=== PATIENT | male | born 1960 | race Caucasian/White ===

== ENCOUNTER 2017-07-21 11:40 | Observation (INO) | payer OTHER ==
[~2017-07-21] VITALS: Ht 177.8 cm; Wt 65.8 kg
[~2017-07-21 11:40] MED LIST: ASPI81CH PO; BP MEDICATION; CYCL10 PO; GABA100 PO; GABA300 PO; GEMF600 PO; HYDCHL12.5 PO; HYDCHL25 PO; LISHYD1012 PO; LISHYD2025 PO; LISI20 PO; Lisinopril2.5 MG; METO25ER PO; MIRT30 PO; NORT10 PO; NORT25 PO; Norco 5-325 Ta1 EACH PO; OMEP10ER; OMEP20ER PO; OMEPRAZOLE MAGN20 MG PO; PRED10 PO; PROM25 PO; Prednisone10 MG PO; SIMV10 PO; SIMV40 PO; TOPI25 PO; TOPI50 PO; TRAZ100 PO
[2017-07-21 13:19] LABS: BASOPHILS ABSOLUTE AUTO 0.05 K/mm3 (0.00-0.23); BASOPHILS PERCENT AUTO 1 % (0-2); EOSINOPHILS ABSOLUTE AUTO 0.11 K/mm3 (0.00-0.68); EOSINOPHILS PERCENT AUTO 2 % (0-6); Hematocrit 45.2 % (37.0-53.0); Hemoglobin 15.5 g/dL (13.5-17.5); IMMATURE GRAN ABSOLUTE AUTO 0.02 K/mm3 (0.00-0.10); IMMATURE GRAN PERCENT AUTO 0 % (0-1); LYMPHOCYTES ABSOLUTE AUTO 1.82 K/mm3 (0.84-5.20); LYMPHOCYTES PERCENT AUTO 25 % (21-46); MONOCYTES ABSOLUTE AUTO 0.55 K/mm3 (0.16-1.47); MONOCYTES PERCENT AUTO 8 % (4-13); Mean Corpuscular HGB 31.2 pg (26.0-34.0); Mean Corpuscular HGB Conc 34.3 g/dL (31.5-36.5); Mean Corpuscular Volume 91 fL (80-100); Mean Platelet Volume 9.5 fL (9.1-12.4); NEUTROPHILS ABSOLUTE AUTO 4.62 K/mm3 (1.96-9.15); NEUTROPHILS PERCENT AUTO 64 % (41-73); Platelet Count 225 K/mm3 (150-400); RDW Coefficient Variation 13.3 % (11.7-14.2); RDW Standard Deviation 44.7 fL (35.1-46.3); Red Blood Cell Count 4.97 M/mm3 (4.30-5.90); White Blood Cell Count 7.17 K/mm3 (4.00-11.30)
[2017-07-21] MEDS ORDERED: CLON.5 PO (13:27)
[2017-07-21] MEDS ORDERED: IBUP800 PO (13:27)
[2017-07-21] MEDS ORDERED: DOXA1 PO (13:28)
[2017-07-21] MEDS ORDERED: ESCI10 PO (13:28)
[2017-07-21 13:47] LABS: Alanine Aminotransfer (ALT/SGP 17 U/L (12-78); Albumin/Globulin Ratio 1.2 (0.8-1.8); Alk Phos 80 U/L (50-136); Anion Gap 8 mmol/L (6-16); Aspartate Aminotrans (AST/SGOT 8 U/L (12-37); Bilirubin, Total 0.5 mg/dL (0.1-1.0); Blood Urea Nitrogen 12 mg/dL (8-24); Bun/Creatinine Ratio 15.1 (12.0-20.0); CO2, Blood 24 mmol/L (21-32); Calcium, Blood 8.8 mg/dL (8.5-10.1); Chloride, Blood 109 mmol/L (98-108); Creatinine, Blood 0.79 mg/dL (0.60-1.20); Ethanol (Alcohol), Blood, Med <3 mg/dL; Globulin, Blood 3.4 g/dL (2.2-4.0); Glomerular Filtration Rate >60 (60-); Glucose, Blood 88 mg/dL (70-99); Salicylate 9.9 mg/dL (2.8-20.0); Sodium, Blood 141 mmol/L (136-145); Total Protein, Blood 7.4 g/dL (6.4-8.2)
[2017-07-21 13:51] LABS: Thyroid Stimulating Hormone 0.601 uIU/mL (0.360-4.800)
[2017-07-21 13:52] LABS: Acetaminophen, Random < 2.0 ug/mL (10.0-30.0)
[2017-07-21 14:31] LABS: Bilirubin, Urine Neg (Neg); Blood, Urine 1+ (Neg); Glucose Qualitative, Urine Neg (Neg); Ketones, Urine Neg (Neg); Leukocyte Esterase, Urine 1+ (Neg); Nitrite, Urine Neg (Neg); Protein, Urine Neg (Neg); Specific Gravity, Urine 1.015 (1.003-1.022); Urobilinogen, Urine NORM (Normal)
[2017-07-21 14:38] LABS: Appearance, Urine Clear (Clear); Color, Urine Yellow (P-Yellow)
[2017-07-21 14:39] LABS: Amorphous Light (0-Heavy); Bacteria Mod /hpf; Red Blood Cells, Urine 0-2 /hpf (0-2); Squamous Epithelial Cells Rare /hpf (Few); White Blood Cells, Urine 0-2 /hpf (0-5)
[2017-07-21 14:41] LABS: U Amphetamine Screen Not Detected; U Barbituate Screen DETECTED; U Benzodiazapine Screen Not Detected; U Buprenorphine Screen Not Detected; U Cannabinoids Screen DETECTED; U Cocaine Screen Not Detected; U Methadone Screen Not Detected; U Methamphetamine Screen Not Detected; U Opiates Screen Not Detected; U Oxycodone Screen Not Detected; U Phencyclidine Screen Not Detected; U Propoxyphene Screen Not Detected
== END 2017-07-21 15:47 | disposition home or self-care (01) ==
LOC: ER 11:40 → EOR 11:41
PROVIDERS: Emergency Medicine
DX: R45.851 Suicidal ideations (principal); F32.9 Major depressive disorder, single episode, unspecified; F29 Unspecified psychosis not due to a substance or known physiological condition; R63.4 Abnormal weight loss; I10 Essential (primary) hypertension; E78.00 Pure hypercholesterolemia, unspecified; Z88.5 Allergy status to narcotic agent; Z79.82 Long term (current) use of aspirin; Z79.899 Other long term (current) drug therapy; Z98.890 Other specified postprocedural states; Z87.891 Personal history of nicotine dependence
CPT/HCPCS: 36415; 80053; 81001; 84443; 85025; 86592; 87086; 87389; 99285; G0378; G0480; Q3014

== ENCOUNTER 2017-08-31 10:24 | Inpatient (IN) | payer OTHER, SELFPAY ==
[~2017-08-31] VITALS: Ht 182.9 cm; Wt 65.1 kg
[~2017-08-31 10:24] MED LIST changes: +CLON.5 PO; +DOXA1 PO; +ESCI10 PO; +IBUP800 PO
[2017-08-31] MEDS ORDERED: TIZANIDINE HCL2 MG PO (10:45)
[2017-08-31] MEDS ORDERED: Prozac20 MG PO (10:45)
[2017-08-31] MEDS ORDERED: SIMV40 PO (10:46)
[2017-08-31] MEDS ORDERED: LISI20 PO (10:46)
[2017-08-31] MEDS ORDERED: TOPI50 PO (10:46)
[2017-08-31 11:00] LABS: PCO2 Arterial 24.8 mmHg (35-45); PO2 Arterial 90.8 mmHg (80-100); pH Blood Arterial 7.23 (7.35-7.45)
[2017-08-31 11:02] LABS: BASOPHILS ABSOLUTE AUTO 0.07 K/mm3 (0.00-0.23); BASOPHILS PERCENT AUTO 1 % (0-2); EOSINOPHILS ABSOLUTE AUTO 0.17 K/mm3 (0.00-0.68); EOSINOPHILS PERCENT AUTO 2 % (0-6); Hematocrit 48.9 % (37.0-53.0); IMMATURE GRAN ABSOLUTE AUTO 0.03 K/mm3 (0.00-0.10); IMMATURE GRAN PERCENT AUTO 0 % (0-1); LYMPHOCYTES PERCENT AUTO 28 % (21-46); MONOCYTES ABSOLUTE AUTO 0.68 K/mm3 (0.16-1.47); MONOCYTES PERCENT AUTO 8 % (4-13); Mean Corpuscular HGB 31.5 pg (26.0-34.0); Mean Corpuscular HGB Conc 32.7 g/dL (31.5-36.5); Mean Corpuscular Volume 96 fL (80-100); Mean Platelet Volume 9.7 fL (9.1-12.4); NEUTROPHILS ABSOLUTE AUTO 5.35 K/mm3 (1.96-9.15); NEUTROPHILS PERCENT AUTO 61 % (41-73); Platelet Count 226 K/mm3 (150-400); RDW Coefficient Variation 13.2 % (11.7-14.2); RDW Standard Deviation 47.6 fL (35.1-46.3); Red Blood Cell Count 5.08 M/mm3 (4.30-5.90)
[2017-08-31 11:10] LABS: Calcium, Ionized (POC) 1.14 mmol/L (1.10-1.46); Chloride (POC) 110 mmol/L (98-108); Creatinine (POC) 0.9 mg/dL (0.8-1.3); Glucose (ISTAT POC) 78 mg/dL (70-99); Hemoglobin (POC) 15.6 g/dL (13.5-17.5); Potassium (POC) 3.7 mmol/L (3.5-5.5); Sodium (POC) 145 mmol/L (135-148); Total CO2 (POC) 14 mmol/L (21-32)
[2017-08-31 11:23] LABS: Acetaminophen, Random <2.0 ug/mL (10.0-30.0); Alanine Aminotransfer (ALT/SGP 16 U/L (12-78); Albumin, Blood 3.9 g/dL (3.4-5.0); Albumin/Globulin Ratio 1.1 (0.8-1.8); Alk Phos 83 U/L (50-136); Anion Gap 15 mmol/L (6-16); Aspartate Aminotrans (AST/SGOT 10 U/L (12-37); Beta-hydroxybutyrate 1.1 mg/dL (0.2-2.8); Bilirubin, Total 0.2 mg/dL (0.1-1.0); Blood Urea Nitrogen 11 mg/dL (8-24); Bun/Creatinine Ratio 10.3 (12.0-20.0); CO2, Blood 17 mmol/L (21-32); Calcium, Blood 9.2 mg/dL (8.5-10.1); Chloride, Blood 113 mmol/L (98-108); Creatinine, Blood 1.07 mg/dL (0.60-1.20); Ethanol (Alcohol), Blood, Med <3 mg/dL; Globulin, Blood 3.6 g/dL (2.2-4.0); Glomerular Filtration Rate >60 (60-); Glucose, Blood 94 mg/dL (70-99); Potassium, Blood 4.7 mmol/L (3.5-5.5); Salicylate 8.9 mg/dL (2.8-20.0); Sodium, Blood 145 mmol/L (136-145); Total Protein, Blood 7.5 g/dL (6.4-8.2)
[2017-08-31 11:27] LABS: Thyroid Stimulating Hormone 0.748 uIU/mL (0.360-4.800)
[2017-08-31 11:48] LABS: Source, Urine Catheter
[2017-08-31 11:52] LABS: Bilirubin, Urine Neg (Neg); Blood, Urine 1+ (Neg); Glucose Qualitative, Urine Neg (Neg); Ketones, Urine Neg (Neg); Leukocyte Esterase, Urine Neg (Neg); Nitrite, Urine Neg (Neg); Protein, Urine Neg (Neg); Urobilinogen, Urine NORM (Normal)
[2017-08-31 12:06] LABS: Appearance, Urine Clear (Clear); Color, Urine Pale Yellow (P-Yellow)
[2017-08-31 12:08] LABS: Bacteria Not Seen /hpf; Red Blood Cells, Urine 0-2 /hpf (0-2); Squamous Epithelial Cells Rare /hpf (Few); White Blood Cells, Urine Not Seen /hpf (0-5)
[2017-08-31 12:11] LABS: U Amphetamine Screen Not Detected; U Barbituate Screen DETECTED; U Benzodiazapine Screen Not Detected; U Buprenorphine Screen Not Detected; U Cannabinoids Screen DETECTED; U Cocaine Screen Not Detected; U Methadone Screen Not Detected; U Methamphetamine Screen Not Detected; U Opiates Screen Not Detected; U Oxycodone Screen Not Detected; U Phencyclidine Screen Not Detected; U Propoxyphene Screen Not Detected
[2017-08-31 14:35] LABS: PCO2 Arterial 27.5 mmHg (35-45); PO2 Arterial 115 mmHg (80-100); pH Blood Arterial 7.26 (7.35-7.45)
[2017-08-31 16:32] LABS: Albumin, Blood 3.3 g/dL (3.4-5.0); Anion Gap 11 mmol/L (6-16); Blood Urea Nitrogen 9 mg/dL (8-24); Bun/Creatinine Ratio 8.7 (12.0-20.0); CO2, Blood 18 mmol/L (21-32); Calcium, Blood 8.3 mg/dL (8.5-10.1); Chloride, Blood 119 mmol/L (98-108); Creatinine, Blood 1.04 mg/dL (0.60-1.20); Glomerular Filtration Rate >60 (60-); Glucose, Blood 105 mg/dL (70-99); Phosphorus, Blood 3.5 mg/dL (2.5-4.9); Potassium, Blood 4.4 mmol/L (3.5-5.5); Salicylate 7.2 mg/dL (2.8-20.0); Sodium, Blood 148 mmol/L (136-145)
[2017-08-31 17:02] LABS: Test Name ETHYL GLYC
[2017-08-31 17:36] LABS: PCO2 Arterial 29.3 mmHg (35-45); PO2 Arterial 94.3 mmHg (80-100); pH Blood Arterial 7.34 (7.35-7.45)
[2017-08-31 21:14] LABS: Anion Gap 8 mmol/L (6-16); Blood Urea Nitrogen 7 mg/dL (8-24); Bun/Creatinine Ratio 8.3 (12.0-20.0); CO2, Blood 21 mmol/L (21-32); Calcium, Blood 7.9 mg/dL (8.5-10.1); Chloride, Blood 119 mmol/L (98-108); Creatinine, Blood 0.84 mg/dL (0.60-1.20); Glomerular Filtration Rate >60 (60-); Glucose, Blood 135 mg/dL (70-99); Potassium, Blood 3.3 mmol/L (3.5-5.5); Sodium, Blood 148 mmol/L (136-145)
[2017-08-31 22:28] LABS: Salicylate 6.5 mg/dL (2.8-20.0)
[2017-08-31 22:42] LABS: PCO2 Arterial 36.6 mmHg (35-45); pH Blood Arterial 7.37 (7.35-7.45)
[2017-09-01 04:34] LABS: BASOPHILS ABSOLUTE AUTO 0.04 K/mm3 (0.00-0.23); BASOPHILS PERCENT AUTO 0 % (0-2); EOSINOPHILS ABSOLUTE AUTO 0.07 K/mm3 (0.00-0.68); EOSINOPHILS PERCENT AUTO 1 % (0-6); Hematocrit 42.8 % (37.0-53.0); Hemoglobin 14.5 g/dL (13.5-17.5); IMMATURE GRAN ABSOLUTE AUTO 0.02 K/mm3 (0.00-0.10); IMMATURE GRAN PERCENT AUTO 0 % (0-1); LYMPHOCYTES PERCENT AUTO 14 % (21-46); MONOCYTES ABSOLUTE AUTO 0.93 K/mm3 (0.16-1.47); MONOCYTES PERCENT AUTO 9 % (4-13); Mean Corpuscular HGB 31.2 pg (26.0-34.0); Mean Corpuscular HGB Conc 33.9 g/dL (31.5-36.5); Mean Platelet Volume 9.6 fL (9.1-12.4); NEUTROPHILS ABSOLUTE AUTO 7.89 K/mm3 (1.96-9.15); NEUTROPHILS PERCENT AUTO 75 % (41-73); Platelet Count 205 K/mm3 (150-400); RDW Coefficient Variation 13.5 % (11.7-14.2); RDW Standard Deviation 45.8 fL (35.1-46.3); Red Blood Cell Count 4.65 M/mm3 (4.30-5.90); White Blood Cell Count 10.45 K/mm3 (4.00-11.30)
[2017-09-01 04:45] LABS: Mean Corpuscular Volume 92 fL (80-100)
[2017-09-01 04:55] LABS: Albumin, Blood 3.2 g/dL (3.4-5.0); Anion Gap 10 mmol/L (6-16); Blood Urea Nitrogen 7 mg/dL (8-24); Bun/Creatinine Ratio 8.6 (12.0-20.0); CO2, Blood 22 mmol/L (21-32); Chloride, Blood 119 mmol/L (98-108); Creatinine, Blood 0.81 mg/dL (0.60-1.20); Glomerular Filtration Rate >60 (60-); Glucose, Blood 95 mg/dL (70-99); Magnesium, Blood 2.2 mg/dL (1.6-2.4); Phosphorus, Blood 2.6 mg/dL (2.5-4.9); Potassium, Blood 3.2 mmol/L (3.5-5.5); Sodium, Blood 151 mmol/L (136-145)
[2017-09-01 05:10] LABS: PCO2 Arterial 33.1 mmHg (35-45); pH Blood Arterial 7.42 (7.35-7.45)
[2017-09-01 11:50] LABS: Anion Gap 9 mmol/L (6-16); Blood Urea Nitrogen 6 mg/dL (8-24); CO2, Blood 21 mmol/L (21-32); Calcium, Blood 8.1 mg/dL (8.5-10.1); Chloride, Blood 119 mmol/L (98-108); Creatinine, Blood 0.75 mg/dL (0.60-1.20); Glomerular Filtration Rate >60 (60-); Glucose, Blood 81 mg/dL (70-99); Potassium, Blood 3.3 mmol/L (3.5-5.5); Sodium, Blood 149 mmol/L (136-145)
[2017-09-01 13:30] LABS: Test Name ETHYL GLYC
[2017-09-01 14:43] LABS: Anion Gap 8 mmol/L (6-16); Blood Urea Nitrogen 7 mg/dL (8-24); Bun/Creatinine Ratio 9.9 (12.0-20.0); CO2, Blood 24 mmol/L (21-32); Calcium, Blood 8.1 mg/dL (8.5-10.1); Chloride, Blood 116 mmol/L (98-108); Glomerular Filtration Rate >60 (60-); Glucose, Blood 84 mg/dL (70-99); Potassium, Blood 3.1 mmol/L (3.5-5.5); Sodium, Blood 148 mmol/L (136-145)
[2017-09-02 00:18] LABS: Test Name ETHYL GLYC
[2017-09-02 03:56] LABS: BASOPHILS ABSOLUTE AUTO 0.04 K/mm3 (0.00-0.23); BASOPHILS PERCENT AUTO 0 % (0-2); EOSINOPHILS ABSOLUTE AUTO 0.11 K/mm3 (0.00-0.68); EOSINOPHILS PERCENT AUTO 1 % (0-6); Hematocrit 36.9 % (37.0-53.0); Hemoglobin 13.1 g/dL (13.5-17.5); IMMATURE GRAN ABSOLUTE AUTO 0.03 K/mm3 (0.00-0.10); IMMATURE GRAN PERCENT AUTO 0 % (0-1); LYMPHOCYTES ABSOLUTE AUTO 1.72 K/mm3 (0.84-5.20); LYMPHOCYTES PERCENT AUTO 18 % (21-46); MONOCYTES ABSOLUTE AUTO 0.97 K/mm3 (0.16-1.47); MONOCYTES PERCENT AUTO 10 % (4-13); Mean Corpuscular HGB 31.6 pg (26.0-34.0); Mean Corpuscular HGB Conc 35.5 g/dL (31.5-36.5); Mean Platelet Volume 9.9 fL (9.1-12.4); NEUTROPHILS ABSOLUTE AUTO 6.77 K/mm3 (1.96-9.15); NEUTROPHILS PERCENT AUTO 70 % (41-73); Platelet Count 180 K/mm3 (150-400); RDW Coefficient Variation 12.8 % (11.7-14.2); Red Blood Cell Count 4.14 M/mm3 (4.30-5.90); White Blood Cell Count 9.64 K/mm3 (4.00-11.30)
[2017-09-02 03:57] LABS: Mean Corpuscular Volume 89 fL (80-100)
[2017-09-02 04:15] LABS: Anion Gap 6 mmol/L (6-16); Blood Urea Nitrogen 5 mg/dL (8-24); Bun/Creatinine Ratio 7.9 (12.0-20.0); CO2, Blood 25 mmol/L (21-32); Calcium, Blood 7.8 mg/dL (8.5-10.1); Chloride, Blood 113 mmol/L (98-108); Creatinine, Blood 0.64 mg/dL (0.60-1.20); Glomerular Filtration Rate >60 (60-); Glucose, Blood 99 mg/dL (70-99); Sodium, Blood 144 mmol/L (136-145)
[2017-09-02 04:46] LABS: PCO2 Arterial 24.5 mmHg (35-45); PO2 Arterial 72.4 mmHg (80-100); pH Blood Arterial 7.54 (7.35-7.45)
[2017-09-02 10:10] LABS: Test Name ETHYL GLYC
[2017-09-02 16:04] LABS: Anion Gap 5 mmol/L (6-16); Blood Urea Nitrogen 5 mg/dL (8-24); Bun/Creatinine Ratio 9.2 (12.0-20.0); CO2, Blood 25 mmol/L (21-32); Calcium, Blood 8.3 mg/dL (8.5-10.1); Chloride, Blood 115 mmol/L (98-108); Creatinine, Blood 0.55 mg/dL (0.60-1.20); Glomerular Filtration Rate >60 (60-); Glucose, Blood 115 mg/dL (70-99); Magnesium, Blood 2.1 mg/dL (1.6-2.4); Potassium, Blood 3.2 mmol/L (3.5-5.5); Sodium, Blood 145 mmol/L (136-145)
[2017-09-02 16:16] LABS: Osmolality, Serum 291 mos/KG (275-300)
[2017-09-03 04:34] LABS: BASOPHILS ABSOLUTE AUTO 0.04 K/mm3 (0.00-0.23); BASOPHILS PERCENT AUTO 0 % (0-2); EOSINOPHILS ABSOLUTE AUTO 0.14 K/mm3 (0.00-0.68); EOSINOPHILS PERCENT AUTO 2 % (0-6); Hemoglobin 14.3 g/dL (13.5-17.5); IMMATURE GRAN ABSOLUTE AUTO 0.03 K/mm3 (0.00-0.10); IMMATURE GRAN PERCENT AUTO 0 % (0-1); LYMPHOCYTES ABSOLUTE AUTO 1.42 K/mm3 (0.84-5.20); LYMPHOCYTES PERCENT AUTO 15 % (21-46); MONOCYTES ABSOLUTE AUTO 0.94 K/mm3 (0.16-1.47); MONOCYTES PERCENT AUTO 10 % (4-13); Mean Corpuscular HGB 31.4 pg (26.0-34.0); Mean Corpuscular HGB Conc 35.8 g/dL (31.5-36.5); Mean Corpuscular Volume 88 fL (80-100); Mean Platelet Volume 10.1 fL (9.1-12.4); NEUTROPHILS ABSOLUTE AUTO 6.84 K/mm3 (1.96-9.15); NEUTROPHILS PERCENT AUTO 73 % (41-73); Platelet Count 200 K/mm3 (150-400); RDW Coefficient Variation 12.9 % (11.7-14.2); RDW Standard Deviation 41.6 fL (35.1-46.3); Red Blood Cell Count 4.55 M/mm3 (4.30-5.90); White Blood Cell Count 9.41 K/mm3 (4.00-11.30)
[2017-09-03 04:53] LABS: Alanine Aminotransfer (ALT/SGP 18 U/L (12-78); Albumin, Blood 3.6 g/dL (3.4-5.0); Alk Phos 72 U/L (50-136); Anion Gap 7 mmol/L (6-16); Aspartate Aminotrans (AST/SGOT 16 U/L (12-37); Bilirubin, Total 0.8 mg/dL (0.1-1.0); Blood Urea Nitrogen 5 mg/dL (8-24); Bun/Creatinine Ratio 8.3 (12.0-20.0); CO2, Blood 23 mmol/L (21-32); Calcium, Blood 8.4 mg/dL (8.5-10.1); Chloride, Blood 112 mmol/L (98-108); Globulin, Blood 3.6 g/dL (2.2-4.0); Glomerular Filtration Rate >60 (60-); Glucose, Blood 103 mg/dL (70-99); Potassium, Blood 3.4 mmol/L (3.5-5.5); Sodium, Blood 142 mmol/L (136-145); Total Protein, Blood 7.2 g/dL (6.4-8.2)
[2017-09-04 05:30] LABS: BASOPHILS ABSOLUTE AUTO 0.05 K/mm3 (0.00-0.23); BASOPHILS PERCENT AUTO 1 % (0-2); EOSINOPHILS ABSOLUTE AUTO 0.24 K/mm3 (0.00-0.68); EOSINOPHILS PERCENT AUTO 3 % (0-6); Hematocrit 39.8 % (37.0-53.0); Hemoglobin 14.2 g/dL (13.5-17.5); IMMATURE GRAN ABSOLUTE AUTO 0.03 K/mm3 (0.00-0.10); IMMATURE GRAN PERCENT AUTO 0 % (0-1); LYMPHOCYTES ABSOLUTE AUTO 1.74 K/mm3 (0.84-5.20); LYMPHOCYTES PERCENT AUTO 21 % (21-46); MONOCYTES ABSOLUTE AUTO 0.67 K/mm3 (0.16-1.47); MONOCYTES PERCENT AUTO 8 % (4-13); Mean Corpuscular HGB 31.5 pg (26.0-34.0); Mean Corpuscular HGB Conc 35.7 g/dL (31.5-36.5); Mean Corpuscular Volume 88 fL (80-100); Mean Platelet Volume 9.7 fL (9.1-12.4); NEUTROPHILS ABSOLUTE AUTO 5.55 K/mm3 (1.96-9.15); NEUTROPHILS PERCENT AUTO 67 % (41-73); Platelet Count 194 K/mm3 (150-400); RDW Standard Deviation 41.7 fL (35.1-46.3); Red Blood Cell Count 4.51 M/mm3 (4.30-5.90); White Blood Cell Count 8.28 K/mm3 (4.00-11.30)
[2017-09-04 05:46] LABS: Anion Gap 7 mmol/L (6-16); Blood Urea Nitrogen 9 mg/dL (8-24); Bun/Creatinine Ratio 14.4 (12.0-20.0); CO2, Blood 23 mmol/L (21-32); Chloride, Blood 111 mmol/L (98-108); Creatinine, Blood 0.63 mg/dL (0.60-1.20); Glomerular Filtration Rate >60 (60-); Glucose, Blood 91 mg/dL (70-99); Magnesium, Blood 2.4 mg/dL (1.6-2.4); Potassium, Blood 3.7 mmol/L (3.5-5.5); Sodium, Blood 141 mmol/L (136-145)
[2017-09-04 08:18] LABS: Result SEE LABOUT RESULTS
[2017-09-04 08:18] LABS: Result SEE LABOUT RESULTS
[2017-09-04 08:18] LABS: Result SEE LABOUT RESULTS
== END 2017-09-05 12:14 | disposition home or self-care (01) | DRG 917 ==
LOC: ER 10:24 → MEDS 12:08 → ICUW 12:08 → MEDS 09-03 12:15 → ENPENDDIS 09-05 11:00 → MEDS 09-05 12:14
PROVIDERS: Emergency Medicine; Internal Medicine; Internal Medicine Critical Care Medicine; Internal Medicine Nephrology; Internal Medicine Pulmonary Disease
PROC: 5A1935Z Respiratory Ventilation, Less than 24 Consecutive Hours (ICD-10-PCS; principal; 2017-08-31)
PROC: 0BH17EZ Insertion of Endotracheal Airway into Trachea, Via Natural or Artificial Opening (ICD-10-PCS; 2017-08-31)
DX: T51.8X2A Toxic effect of other alcohols, intentional self-harm, initial encounter (principal); G92 Toxic encephalopathy; J96.01 Acute respiratory failure with hypoxia; N17.9 Acute kidney failure, unspecified; E87.2 Acidosis; E87.0 Hyperosmolality and hypernatremia; E87.6 Hypokalemia; S02.2XXA Fracture of nasal bones, initial encounter for closed fracture; W19.XXXA Unspecified fall, initial encounter; G40.909 Epilepsy, unspecified, not intractable, without status epilepticus; K21.9 Gastro-esophageal reflux disease without esophagitis; I10 Essential (primary) hypertension; E78.5 Hyperlipidemia, unspecified; F32.9 Major depressive disorder, single episode, unspecified; R40.2431 Glasgow coma scale score 3-8, in the field [EMT or ambulance]
CPT/HCPCS: 31500; 31720; 36415; 36569; 36600; 51702; 70450; 71045; 72125; 80047; 80048; 80053; 80069; 81001; 82010; 82330; 82693; 82803; 83605; 83735; 83930; 84100; 84443; 85014; 85025; 93005; 93010; 94002; 94003; 94640; 94760; 96361; 96374; 99291; 99292; C1751; G0480; J0330; J1451; J1650; J3010; J3411; J3415; J3475; J3480; J7030; J7042; J7060; J7070; J7120; L0160

== ENCOUNTER → 2017-10-16 | Outpatient (CLI) | payer OTHER ==
[~2017-10-16] MED LIST changes: +Prozac20 MG PO; +TIZANIDINE HCL2 MG PO
== END ==
LOC: LAB SHORT 12:18 → LAB 12:18
DX: M62.81 Muscle weakness (generalized) (principal); Z79.899 Other long term (current) drug therapy
CPT/HCPCS: 82550

== ENCOUNTER → 2017-10-18 | Outpatient (CLI) | payer OTHER ==
[2017-10-19 15:16] LABS: Creatinine, Urine Random 82.8 mg/dL (27.00-270.00)
[2017-10-19 15:19] LABS: Microalb/Creat Ratio UR, Rand 12.802 mg/g (0.000-30.000); Microalbumin, Random Urine 10.6 mg/L (0.000-20.000)
== END | disposition home or self-care (01) ==
LOC: LAB SHORT 07:45 → LAB 07:45
PROVIDERS: Internal Medicine Nephrology
DX: N18.2 Chronic kidney disease, stage 2 (mild) (principal); D63.1 Anemia in chronic kidney disease
CPT/HCPCS: 82043; 82570

== ENCOUNTER 2018-09-13 10:18 | Emergency (ER) | payer OTHER ==
[~2018-09-13] VITALS: Ht 177.8 cm; Wt 77.1 kg
[2018-09-13] MEDS ORDERED: CEPH500 PO (11:18)
== END 2018-09-13 11:36 | disposition home or self-care (01) ==
LOC: ER 10:18
DX: L03.115 Cellulitis of right lower limb (principal); I10 Essential (primary) hypertension; E78.00 Pure hypercholesterolemia, unspecified; Z88.5 Allergy status to narcotic agent; Z79.82 Long term (current) use of aspirin; Z79.899 Other long term (current) drug therapy; Z87.891 Personal history of nicotine dependence
CPT/HCPCS: 93971; 99283-25

== ENCOUNTER 2018-10-08 10:07 | Day surgery (SDC) | payer OTHER ==
[~2018-10-08] VITALS: Ht 177.8 cm; Wt 87.6 kg
[~2018-10-08 10:07] MED LIST changes: +Abilify2 MG PO; +CEPH500 PO; +DULO30 PO; +MOTION RELIEF25 MG PO; +TAMS.4ER PO; +TRAZ50 PO; +Zocor20 MG PO
--- NOTE | 2018-10-08 10:47 | NUR ---
History, Chart, Medications and Allergies reviewed before start of procedure. Patient confirms NPO status and agrees with scheduled surgery. Lungs clear T/O to Auscultation. Pre-Op teaching done. Pt verbalizes understanding. Patient States Post-Procedure ride home has been arranged.
--- NOTE | 2018-10-08 11:47 | NUR ---
10/08/18 1147 Lilia Mensah History, Chart, Medications and Allergies reviewed before start of procedure.PATIENT DETERMINED TO BE ASA APPROPRIATE FOR PROPOFOL SEDATION PRIOR TO START OF PROCEDURE BY .MONITOR INTACT WITH CONTINUOUS PULSE OXIMETRY AND INTERMITTENT BP.3-LEAD EKG REVIEWED WITH PHYSICIAN PRIOR TO START OF PROCEDURE.O2 VIA N/C INTACT THROUGHOUT SEDATION/PROCEDURE.
--- NOTE | 2018-10-08 11:49 | NUR ---
PT LETHARGIC UPON RETURN TO RECOVERY BUT WAKES EASILY WITH VERBAL STIMULI AND SITS UP WELL WITH ASSISTANCE. SIPPING ON PO FLUIDS AT THIS TIME. AT BEDSIDE. MD IN TO SEE PRIOR TO PATIENT RETURN TO REVIEW RESULTS.
--- NOTE | 2018-10-08 12:08 | NUR ---
REVIEWED DISCHARGE INSTRUCTIONS WITH PATIENT AND - BOTH OF WHOM VERBALIZED UNDERSTANDING OF ALL INSTRUCTIONS GIVEN.
--- NOTE | 2018-10-08 12:16 | NUR ---
IV DC TIP INTACT. PT DC HOME VIA WC AT THIS TIME.
== END 2018-10-08 22:54 | disposition home or self-care (01) ==
LOC: ORSCMMR 10:07 → ORD 11:00 → ORSCMMR 22:54
PROVIDERS: Internal Medicine Gastroenterology
PROC: 0DB58ZX Excision of Esophagus, Via Natural or Artificial Opening Endoscopic, Diagnostic (ICD-10-PCS; principal; 2018-10-08 11:00)
PROC: 0DB48ZX Excision of Esophagogastric Junction, Via Natural or Artificial Opening Endoscopic, Diagnostic (ICD-10-PCS; principal; 2018-10-08 11:00)
DX: K22.70 Barrett's esophagus without dysplasia (principal); K21.0 Gastro-esophageal reflux disease with esophagitis; K44.9 Diaphragmatic hernia without obstruction or gangrene; R56.9 Unspecified convulsions; E78.00 Pure hypercholesterolemia, unspecified; F32.9 Major depressive disorder, single episode, unspecified; I10 Essential (primary) hypertension; F17.210 Nicotine dependence, cigarettes, uncomplicated; Z79.899 Other long term (current) drug therapy
CPT/HCPCS: 88305; 88312; J2704; J7120

== ENCOUNTER 2019-02-17 19:20 | Inpatient (IN) | payer OTHER ==
[~2019-02-17] VITALS: Ht 177.8 cm; Wt 90.7 kg
[2019-02-17 20:30] LABS: BASOPHILS ABSOLUTE AUTO 0.04 K/mm3 (0.00-0.23); BASOPHILS PERCENT AUTO 0 % (0-2); EOSINOPHILS ABSOLUTE AUTO 0.02 K/mm3 (0.00-0.68); EOSINOPHILS PERCENT AUTO 0 % (0-6); Hematocrit 48.7 % (37.0-53.0); Hemoglobin 16.2 g/dL (13.5-17.5); IMMATURE GRAN PERCENT AUTO 1 % (0-1); LYMPHOCYTES ABSOLUTE AUTO 0.94 K/mm3 (0.84-5.20); LYMPHOCYTES PERCENT AUTO 6 % (21-46); MONOCYTES ABSOLUTE AUTO 0.73 K/mm3 (0.16-1.47); MONOCYTES PERCENT AUTO 5 % (4-13); Mean Corpuscular HGB 32.1 pg (26.0-34.0); Mean Corpuscular HGB Conc 33.3 g/dL (31.5-36.5); Mean Corpuscular Volume 97 fL (80-100); Mean Platelet Volume 9.7 fL (9.1-12.4); NEUTROPHILS ABSOLUTE AUTO 14.28 K/mm3 (1.96-9.15); NEUTROPHILS PERCENT AUTO 89 % (41-73); Platelet Count 264 K/mm3 (150-400); RDW Coefficient Variation 13.4 % (11.7-14.2); Red Blood Cell Count 5.04 M/mm3 (4.30-5.90); White Blood Cell Count 16.11 K/mm3 (4.00-11.30)
[2019-02-17 20:47] LABS: Alanine Aminotransfer (ALT/SGP 30 U/L (12-78); Albumin, Blood 4.2 g/dL (3.4-5.0); Alk Phos 94 U/L (50-136); Anion Gap 5 mmol/L (6-16); Aspartate Aminotrans (AST/SGOT 21 U/L (12-37); Bilirubin, Total 0.7 mg/dL (0.1-1.0); Blood Urea Nitrogen 14 mg/dL (8-24); Bun/Creatinine Ratio 15.2 (12.0-20.0); CO2, Blood 23 mmol/L (21-32); Calcium, Blood 9.3 mg/dL (8.5-10.1); Chloride, Blood 109 mmol/L (98-108); Creatinine, Blood 0.92 mg/dL (0.60-1.20); Globulin, Blood 4.2 g/dL (2.2-4.0); Glomerular Filtration Rate >60 (60-); Glucose, Blood 190 mg/dL (70-99); Sodium, Blood 137 mmol/L (136-145); Total Protein, Blood 8.4 g/dL (6.4-8.2)
[2019-02-17] MEDS ORDERED: FERSU300 PO (22:52)
[2019-02-17] MEDS ORDERED: FURO20 PO (22:53)
[2019-02-17] MEDS ORDERED: POTA10T PO (22:53)
[2019-02-17] MEDS ORDERED: FISH OIL 1,0001 EAC1 PO (22:53)
[2019-02-17] MEDS ORDERED: ASCO500 PO (22:54)
[2019-02-17 23:00] LABS: Source, Urine Clean Catch
[2019-02-17 23:03] LABS: Bilirubin, Urine Neg (Neg); Blood, Urine 2+ (Neg); Glucose Qualitative, Urine Neg (Neg); Ketones, Urine 3+ (Neg); Leukocyte Esterase, Urine 1+ (Neg); Nitrite, Urine Neg (Neg); Protein, Urine 3+ (Neg); Urobilinogen, Urine 1+ (Normal)
[2019-02-17 23:15] LABS: Appearance, Urine Clear (Clear); Color, Urine Amber (P-Yellow)
[2019-02-17 23:16] LABS: Amorphous Light (0-Heavy); Bacteria Mod /hpf; Mucus Light (0-Heavy)
[2019-02-17 23:17] LABS: Hyaline Casts 0-2 /lpf (0-2); Squamous Epithelial Cells Rare /hpf (Few)
--- NOTE | 2019-02-18 04:12 | NUR ---
PATIENT ARRIVED VIA GURNEY FROM THE ER AT 0225. HE IS AWAKE AND AWARE. HE HAS NO COMPLAINTS OF PAIN. THOUGH WHEN HE PUSHES ON HIS LOWER ABDOMEN, THIS IS THE AREA WHERE HE HAS BEEN HURTING TODAY. HE CONTINUES TO HAVE RELIEF FROM MEDICATIONS GIVEN IN THE ER. AUDIBLY WHEEZY ON TRANSFER TO THE BED, THIS RESOLVES WITHIN MINUTES. HIS LUNGS ARE CLEAR THROUGHOUT, HE HAS AN OCCASIONAL COUGH. HE DOES NOT WISH TO HAVE ANY AVAILABLE COUGH SUPPRESANT AT THIS TIME. PAS ON BILAT LE. NO EDEMA. CALL LIGHT WITHIN REACH. PATIENT WISHES TO GET SOME SLEEP AT THIS TIME.
--- NOTE | 2019-02-18 07:00 | NUR ---
recvd report from previous shift RN Ruth, orientee DEN Hooks to care for pt with this RN to follow. pt resting in bed, call light within reach, bed in lowest position, bed rails up x 2
[2019-02-18 08:58] LABS: Hematocrit 39.3 % (37.0-53.0); Hemoglobin 13.7 g/dL (13.5-17.5); Mean Corpuscular HGB 32.5 pg (26.0-34.0); Mean Corpuscular HGB Conc 34.9 g/dL (31.5-36.5); Mean Platelet Volume 9.8 fL (9.1-12.4); Platelet Count 219 K/mm3 (150-400); RDW Coefficient Variation 13.6 % (11.7-14.2); RDW Standard Deviation 46.3 fL (35.1-46.3); Red Blood Cell Count 4.22 M/mm3 (4.30-5.90); White Blood Cell Count 14.38 K/mm3 (4.00-11.30)
[2019-02-18 08:59] LABS: Mean Corpuscular Volume 93 fL (80-100)
--- NOTE | 2019-02-18 09:45 | NUR ---
PT OUTSIDE SMOKING AT 0920 THIS MORNING W/FAMILY
--- NOTE | 2019-02-18 11:39 | NUR ---
PT AMBULATING IND. HALLWAY AT THIS TIME
--- NOTE | 2019-02-18 13:30 | NUR ---
PT AT DESK REQUESTING TO SEE DOCTOR, TO BE DISCHARGED
--- NOTE | 2019-02-18 14:00 | NUR ---
CALLED DR CHILDERS FOLLOWING A REPEATE REQUEST FROM PT. DR CHILDERS WILL ROUND ON PT THIS AFTERNOON. RELAYED THIS INFORMATION TO PT. PT OUTSIDE TO SMOKE CURRENTLY
--- NOTE | 2019-02-18 16:19 | NUR ---
LEAVING AMA PT LEAVING AMA. THOROUGH EDUCATION ON RISKS OF AMA PROVIDED, PT STATES HE "NEEDS TO GO TO WORK." DR. CHILDERS NOTIFIED. IV REMOVED WNL. PT SIGNED AMA PAPER WORK AND AWAITING RIDE FROM SPOUSE.
--- NOTE | 2019-02-18 16:41 | NUR ---
pt's here to transport pt home, pt given robe/gown to wear home as he has no clothes
== END 2019-02-18 17:00 | disposition left against medical advice (07) | DRG 192 ==
LOC: ER 19:20 → SURS 02-18 01:54
PROVIDERS: Physician Assistant; ADMIT Hospitalist
DX: J44.1 Chronic obstructive pulmonary disease with (acute) exacerbation (principal); S30.1XXA Contusion of abdominal wall, initial encounter; I10 Essential (primary) hypertension; E78.5 Hyperlipidemia, unspecified; F32.9 Major depressive disorder, single episode, unspecified; F17.210 Nicotine dependence, cigarettes, uncomplicated; G40.909 Epilepsy, unspecified, not intractable, without status epilepticus; R73.03 Prediabetes
CPT/HCPCS: 36415; 71046; 74176; 80053; 81001; 83690; 84145; 85025; 85027; 87086; 93005; 93010; 94640; 94760; 96361; 96365; 96366; 96375; 96376; 99285-25; J0456; J1170; J2405; J2930; J7030; J7050

== ENCOUNTER 2019-09-09 10:33 | Emergency (ER) | payer OTHER ==
[~2019-09-09] VITALS: Ht 177.8 cm; Wt 104.3 kg
[~2019-09-09 10:33] MED LIST changes: +ASCO500 PO; +FERSU300 PO; +FISH OIL 1,0001 EAC1 PO; +FURO20 PO; +POTA10T PO
[2019-09-09 11:05] LABS: BASOPHILS ABSOLUTE AUTO 0.09 K/mm3 (0.00-0.23); BASOPHILS PERCENT AUTO 1 % (0-2); EOSINOPHILS ABSOLUTE AUTO 0.26 K/mm3 (0.00-0.68); EOSINOPHILS PERCENT AUTO 4 % (0-6); Hematocrit 45.7 % (37.0-53.0); Hemoglobin 15.4 g/dL (13.5-17.5); IMMATURE GRAN ABSOLUTE AUTO 0.07 K/mm3 (0.00-0.10); IMMATURE GRAN PERCENT AUTO 1 % (0-1); LYMPHOCYTES ABSOLUTE AUTO 1.96 K/mm3 (0.84-5.20); LYMPHOCYTES PERCENT AUTO 28 % (21-46); MONOCYTES ABSOLUTE AUTO 0.55 K/mm3 (0.16-1.47); MONOCYTES PERCENT AUTO 8 % (4-13); Mean Corpuscular HGB 33.3 pg (26.0-34.0); Mean Corpuscular HGB Conc 33.7 g/dL (31.5-36.5); Mean Corpuscular Volume 99 fL (80-100); Mean Platelet Volume 9.4 fL (9.1-12.4); NEUTROPHILS ABSOLUTE AUTO 3.96 K/mm3 (1.96-9.15); NEUTROPHILS PERCENT AUTO 58 % (41-73); Platelet Count 205 K/mm3 (150-400); RDW Coefficient Variation 13.5 % (11.7-14.2); RDW Standard Deviation 48.5 fL (35.1-46.3); Red Blood Cell Count 4.62 M/mm3 (4.30-5.90); White Blood Cell Count 6.89 K/mm3 (4.00-11.30)
[2019-09-09 11:30] LABS: Troponin I <0.015 ng/mL (0.000-0.040)
[2019-09-09 11:31] LABS: Anion Gap 8 mmol/L (6-16); Blood Urea Nitrogen 14 mg/dL (8-24); Bun/Creatinine Ratio 15.9 (12.0-20.0); CO2, Blood 23 mmol/L (21-32); Calcium, Blood 8.3 mg/dL (8.5-10.1); Chloride, Blood 110 mmol/L (98-108); Creatinine, Blood 0.88 mg/dL (0.60-1.20); Glomerular Filtration Rate >60 (60-); Glucose, Blood 131 mg/dL (70-99); Potassium, Blood 3.5 mmol/L (3.5-5.5); Sodium, Blood 141 mmol/L (136-145)
[2019-09-09] MEDS ORDERED: Prednisone20 MG PO (13:22)
[2019-09-09] MEDS ORDERED: ALBU90OI INH (13:22)
[2019-09-09] MEDS ORDERED: FUTURO RESTORI1 EACH TOP (13:22)
== END 2019-09-09 14:12 | disposition home or self-care (01) ==
LOC: ER 10:33
PROVIDERS: Physician Assistant
DX: J44.1 Chronic obstructive pulmonary disease with (acute) exacerbation (principal); I87.2 Venous insufficiency (chronic) (peripheral); I10 Essential (primary) hypertension; J44.9 Chronic obstructive pulmonary disease, unspecified; F32.9 Major depressive disorder, single episode, unspecified; E78.5 Hyperlipidemia, unspecified; F17.200 Nicotine dependence, unspecified, uncomplicated; Z88.5 Allergy status to narcotic agent; Z79.899 Other long term (current) drug therapy; Z79.82 Long term (current) use of aspirin
CPT/HCPCS: 36415; 71045; 80048; 83880; 84484; 85025; 93005; 93010; 93970; 94640; 94644; 96374; 99284-25; J2930

== ENCOUNTER → 2019-10-13 | Outpatient (CLI) | payer OTHER ==
[~2019-10-13] MED LIST changes: +ALBU90OI INH; +FUTURO RESTORI1 EACH TOP; +Prednisone20 MG PO
[2019-10-14 13:34] LABS: Creatinine Urine 98.7 mg/dL (27.00-270.00)
[2019-10-14 13:36] LABS: Microalbumin, Urine Quant. 14.6 mg/L (0.000-20.000)
== END | disposition home or self-care (01) ==
LOC: LAB 10:44 → LAB SHORT 10:44
PROVIDERS: Internal Medicine Nephrology
DX: N18.2 Chronic kidney disease, stage 2 (mild) (principal); D63.1 Anemia in chronic kidney disease; N25.81 Secondary hyperparathyroidism of renal origin; E55.9 Vitamin D deficiency, unspecified; E78.00 Pure hypercholesterolemia, unspecified; R80.9 Proteinuria, unspecified
CPT/HCPCS: 81050; 82043; 82570; 84156

== ENCOUNTER 2019-11-04 05:08 | Emergency (ER) | payer OTHER ==
[~2019-11-04] VITALS: Ht 177.8 cm; Wt 107.0 kg
[2019-11-04 07:30] LABS: Calcium, Ionized (POC) 1.15 mmol/L (1.10-1.46); Chloride (POC) 105 mmol/L (98-108); Creatinine (POC) 0.9 mg/dL (0.8-1.3); Glucose (ISTAT POC) 115 mg/dL (70-99); Hemoglobin (POC) 14.6 g/dL (13.5-17.5); Potassium (POC) 3.3 mmol/L (3.5-5.5); Sodium (POC) 136 mmol/L (135-148); Total CO2 (POC) 20 mmol/L (21-32)
[2019-11-04 08:59] LABS: Anion Gap 7 mmol/L (6-16); Blood Urea Nitrogen 18 mg/dL (8-24); Bun/Creatinine Ratio 19.4 (12.0-20.0); CO2, Blood 22 mmol/L (21-32); Calcium, Blood 8.4 mg/dL (8.5-10.1); Chloride, Blood 108 mmol/L (98-108); Creatinine, Blood 0.93 mg/dL (0.60-1.20); Glomerular Filtration Rate >60 (60-); Glucose, Blood 115 mg/dL (70-99); Potassium, Blood 3.3 mmol/L (3.5-5.5); Sodium, Blood 137 mmol/L (136-145)
== END 2019-11-04 09:00 | disposition home or self-care (01) ==
LOC: ER 05:08
PROVIDERS: Emergency Medicine
DX: R55 Syncope and collapse (principal); S01.01XA Laceration without foreign body of scalp, initial encounter; E87.6 Hypokalemia; J44.9 Chronic obstructive pulmonary disease, unspecified; Z88.5 Allergy status to narcotic agent; Z79.899 Other long term (current) drug therapy; Z79.82 Long term (current) use of aspirin; I10 Essential (primary) hypertension; E78.00 Pure hypercholesterolemia, unspecified; G40.909 Epilepsy, unspecified, not intractable, without status epilepticus; E78.5 Hyperlipidemia, unspecified; F32.9 Major depressive disorder, single episode, unspecified; F17.210 Nicotine dependence, cigarettes, uncomplicated; W18.30XA Fall on same level, unspecified, initial encounter
CPT/HCPCS: 12002; 36415; 70450; 71046; 80047; 80048; 85014; 93005; 93010; 99284-25; G0480; J7030

== ENCOUNTER → 2020-01-20 | Outpatient (CLI) | payer OTHER ==
[~2020-01-20] MED LIST changes: +ATOR20 PO; +Aspirin EC81 MG PO; +BUME2 PO; +IBU800 MG PO; +IRON18 MG PO
[2020-01-20 13:25] LABS: Adenovirus F 40/41 Not Detected (NOT DETECT); Astrovirus Not Detected (NOT DETECT); Campylobacter Sp Not Detected (NOT DETECT); Cryptosporidium Not Detected (NOT DETECT); Cyclospora Cayetanensis Not Detected (NOT DETECT); E. Coli O157 Not Detected (NOT DETECT); Entamoeba Histolytica Not Detected (NOT DETECT); Enteroaggregative E. coli-EAEC Not Detected (NOT DETECT); Enteropathogenic E. coli-EPEC Not Detected (NOT DETECT); Enterotoxigenic E. coli-ETEC Not Detected (NOT DETECT); Giardia Lamblia Not Detected (NOT DETECT); Norovirus GI/GII Not Detected (NOT DETECT); Plesiomonas Shigelloides Not Detected (NOT DETECT); Rotavirus A Not Detected (NOT DETECT); Salmonella Sp Not Detected (NOT DETECT); Sapovirus Not Detected (NOT DETECT); Shiga Toxin-prod E. coli-STEC Not Detected (NOT DETECT); Shigella/Enteroin E. coli-EIEC Not Detected (NOT DETECT); Vibrio Cholerae Not Detected (NOT DETECT); Vibrio Sp Not Detected (NOT DETECT); Yersinia Enterocolitica Not Detected (NOT DETECT)
== END | disposition home or self-care (01) ==
LOC: LAB UCHC 09:47 → LAB SHORT 09:47
PROVIDERS: Family Medicine
DX: E87.6 Hypokalemia (principal); R19.5 Other fecal abnormalities
CPT/HCPCS: 0097U

== ENCOUNTER 2020-06-03 16:00 | Observation (INO) | payer OTHER ==
[~2020-06-03] VITALS: Ht 177.8 cm; Wt 109.8 kg
[~2020-06-03 16:00] MED LIST changes: +ABILIFY MYCITE5 MG PO; -Abilify2 MG PO; -CLON.5 PO; +CLON1 PO; +LISI5 PO; -POTA10T PO; +POTCHL20ER PO
[2020-06-03] MEDS ORDERED: LEVE500 PO (16:24)
[2020-06-03 16:30] LABS: Calcium, Ionized (POC) 1.09 mmol/L (1.10-1.46); Chloride (POC) 96 mmol/L (98-108); Creatinine (POC) 3.1 mg/dL (0.8-1.3); Glucose (ISTAT POC) 153 mg/dL (70-99); Potassium (POC) 3.2 mmol/L (3.5-5.5); Sodium (POC) 131 mmol/L (135-148); Total CO2 (POC) 23 mmol/L (21-32)
[2020-06-03 16:51] LABS: BASOPHILS ABSOLUTE AUTO 0.09 K/mm3 (0.00-0.23); BASOPHILS PERCENT AUTO 1 % (0-2); EOSINOPHILS ABSOLUTE AUTO 0.29 K/mm3 (0.00-0.68); EOSINOPHILS PERCENT AUTO 3 % (0-6); Hematocrit 42.9 % (37.0-53.0); Hemoglobin 14.3 g/dL (13.5-17.5); IMMATURE GRAN ABSOLUTE AUTO 0.08 K/mm3 (0.00-0.10); IMMATURE GRAN PERCENT AUTO 1 % (0-1); LYMPHOCYTES ABSOLUTE AUTO 2.33 K/mm3 (0.84-5.20); LYMPHOCYTES PERCENT AUTO 24 % (21-46); MONOCYTES ABSOLUTE AUTO 0.81 K/mm3 (0.16-1.47); MONOCYTES PERCENT AUTO 8 % (4-13); Mean Corpuscular HGB 31.4 pg (26.0-34.0); Mean Corpuscular HGB Conc 33.3 g/dL (31.5-36.5); Mean Corpuscular Volume 94 fL (80-100); Mean Platelet Volume 9.4 fL (9.1-12.4); NEUTROPHILS ABSOLUTE AUTO 6.18 K/mm3 (1.96-9.15); NEUTROPHILS PERCENT AUTO 63 % (41-73); Platelet Count 254 K/mm3 (150-400); RDW Coefficient Variation 13.2 % (11.7-14.2); RDW Standard Deviation 45.1 fL (35.1-46.3); Red Blood Cell Count 4.56 M/mm3 (4.30-5.90); White Blood Cell Count 9.78 K/mm3 (4.00-11.30)
[2020-06-03 17:21] LABS: Albumin, Blood 3.8 g/dL (3.4-5.0); Bilirubin, Total 0.3 mg/dL (0.1-1.0); Bun/Creatinine Ratio 20.3 (12.0-20.0); Calcium, Blood 8.8 mg/dL (8.5-10.1); Creatinine, Blood 2.71 mg/dL (0.60-1.20); Globulin, Blood 3.7 g/dL (2.2-4.0); Potassium, Blood 3.3 mmol/L (3.5-5.5); Total Protein, Blood 7.5 g/dL (6.4-8.2)
[2020-06-03 18:18] LABS: Albumin, Blood 3.7 g/dL (3.4-5.0); Bilirubin, Direct 0.1 mg/dL (0.0-0.3); Bilirubin, Indirect 0.2 mg/dL (0.1-0.7); Bilirubin, Total 0.3 mg/dL (0.1-1.0); Globulin, Blood 3.7 g/dL (2.2-4.0); Total Protein, Blood 7.4 g/dL (6.4-8.2)
[2020-06-03] MEDS ORDERED: Naltrexone HCl50 MG PO (18:19)
[2020-06-03] MEDS ORDERED: DESV50 PO (18:20)
[2020-06-03] MEDS ORDERED: SPIR25 PO (18:20)
[2020-06-03] MEDS ORDERED: METO5 PO (18:20)
[2020-06-03] MEDS ORDERED: THERA-D2000 UNIT PO (18:20)
[2020-06-03 18:21] LABS: Prolactin 15.8 ng/mL (2.5-17.4); Thyroid Stimulating Hormone 0.922 uIU/mL (0.360-4.800)
[2020-06-03] MEDS ORDERED: FENO48 PO (18:21)
[2020-06-03] MEDS ORDERED: CALC.25 PO (18:21)
[2020-06-03 22:52] LABS: U Amphetamine Screen Not Detected; U Barbituate Screen Not Detected; U Benzodiazapine Screen Not Detected; U Buprenorphine Screen Not Detected; U Cannabinoids Screen DETECTED; U Cocaine Screen Not Detected; U Methadone Screen Not Detected; U Methamphetamine Screen Not Detected; U Opiates Screen Not Detected; U Oxycodone Screen Not Detected; U Phencyclidine Screen Not Detected; U Propoxyphene Screen Not Detected
--- NOTE | 2020-06-04 06:28 | NUR ---
SHIFT SUMMARY PT ARRIVED FROM ER VIA STRETCHER APPROXIMATELY @ 2019 AND SELF TRANSFERED TO BED; PT A&O X3-4; DENIES CHEST PAIN; VSS; NSR NOTED ON TELE W/ HR 80'S; O2 SATS >93 ON RA; LUNG SOUNDS WHEEZE IN BASES; SPOKE W/ EARLY IN SHIFT FOR NEW ORDER OF 1 X DOSE NICOTINE PATCH PER PT REQUEST; PT STATES HX OF BARIUM SWALLOW W/ POSSIBLE ASPIRATION; HOWEVER PT STATES HE HAS NOT MADE ADJUSTMENTS AT HOME; UNCLEAR OF DATE/TIME OF SWALLOW; PT EDUCATED ON UNIT SAFETY AND PROTOCOL; REMINDED TO CALL FOR ASSISTANCE; USES URINAL AT BEDSIDE; PT APPEARS WEAK, BUT STABLE; CALL LIGHT IN REACH; BED IN LOWEST POSITION; BED ALARM ON FOR SAFETY; WILL CONTINUE TO MONITOR CLOSELY UNTIL HAND OFF TO DAY SHIFT RN.
[2020-06-04 07:22] LABS: Bun/Creatinine Ratio 23.8 (12.0-20.0); Calcium, Blood 8.2 mg/dL (8.5-10.1); Creatinine, Blood 1.85 mg/dL (0.60-1.20); Potassium, Blood 3.4 mmol/L (3.5-5.5)
[2020-06-04] MEDS ORDERED: FOLI1 PO (09:50)
[2020-06-04] MEDS ORDERED: B-1100 M1 PO (09:51)
[2020-06-04] MEDS ORDERED: MULVITA PO (09:51)
[2020-06-04] MEDS ORDERED: BUME2 PO (10:47)
--- NOTE | 2020-06-04 12:07 | NUR ---
DISCHARGE NOTE PT IS ALERT AND OREINTED X4. ON ROOM AIR SATING ABOVE 92%. TELE SHOWING SINUS RHYTHM. HR 80-90'S. DENIES CHEST PAIN. VITAL SIGNS STABLE. NO ACUTE CHANGES. IV TAKEN OUT. TELE REMOVED. DISCHARGE INFORMATION REVIEWED AND QUESTIONS ANSWERED. EDUCATION PROVIDED ON NEW MEDICATIONS.
== END 2020-06-04 12:59 | disposition home or self-care (01) ==
LOC: ER 16:00 → PCU 16:01
PROVIDERS: Emergency Medicine; Internal Medicine; ADMIT Internal Medicine
DX: I95.9 Hypotension, unspecified (principal); N17.9 Acute kidney failure, unspecified; E87.6 Hypokalemia; E83.51 Hypocalcemia; E87.1 Hypo-osmolality and hyponatremia; R10.11 Right upper quadrant pain; F19.10 Other psychoactive substance abuse, uncomplicated; F10.10 Alcohol abuse, uncomplicated; I12.9 Hypertensive chronic kidney disease with stage 1 through stage 4 chronic kidney disease, or unspecified chronic kidney disease; N18.30 Chronic kidney disease, stage 3 unspecified; E78.5 Hyperlipidemia, unspecified; G40.909 Epilepsy, unspecified, not intractable, without status epilepticus; J44.9 Chronic obstructive pulmonary disease, unspecified; F17.210 Nicotine dependence, cigarettes, uncomplicated; Z23 Encounter for immunization; Z88.5 Allergy status to narcotic agent
CPT/HCPCS: 36415; 76705; 80047; 80048; 80053; 80076; 80177; 83605; 84146; 84443; 85014; 85025; 93005; 93010; 94640; 94760; 96360; 96365; 96372; 96375; 99285-25; A9270; G0008; G0378; J0610; J1650; J2060; J3480; J7030; Q2038

== ENCOUNTER 2020-09-27 21:40 | Inpatient (IN) | payer OTHER ==
[~2020-09-27] VITALS: Ht 177.8 cm; Wt 116.0 kg
[~2020-09-27 21:40] MED LIST changes: +B-1100 M1 PO; +CALC.25 PO; +DESV50 PO; +FENO48 PO; +FOLI1 PO; +LEVE500 PO; +METO5 PO; +MULVITA PO; +Naltrexone HCl50 MG PO; +SPIR25 PO; +THERA-D2000 UNIT PO
[2020-09-27 22:27] LABS: BASOPHILS ABSOLUTE AUTO 0.07 K/mm3 (0.00-0.23); BASOPHILS PERCENT AUTO 1 % (0-2); EOSINOPHILS ABSOLUTE AUTO 0.19 K/mm3 (0.00-0.68); EOSINOPHILS PERCENT AUTO 2 % (0-6); Hematocrit 35.2 % (37.0-53.0); IMMATURE GRAN ABSOLUTE AUTO 0.09 K/mm3 (0.00-0.10); IMMATURE GRAN PERCENT AUTO 1 % (0-1); LYMPHOCYTES ABSOLUTE AUTO 2.85 K/mm3 (0.84-5.20); LYMPHOCYTES PERCENT AUTO 31 % (21-46); MONOCYTES ABSOLUTE AUTO 0.69 K/mm3 (0.16-1.47); MONOCYTES PERCENT AUTO 8 % (4-13); Mean Corpuscular HGB 31.7 pg (26.0-34.0); Mean Corpuscular HGB Conc 34.1 g/dL (31.5-36.5); Mean Corpuscular Volume 93 fL (80-100); Mean Platelet Volume 9.9 fL (9.1-12.4); NEUTROPHILS ABSOLUTE AUTO 5.18 K/mm3 (1.96-9.15); NEUTROPHILS PERCENT AUTO 57 % (41-73); Platelet Count 247 K/mm3 (150-400); RDW Standard Deviation 47.8 fL (35.1-46.3); Red Blood Cell Count 3.78 M/mm3 (4.30-5.90); White Blood Cell Count 9.07 K/mm3 (4.00-11.30)
[2020-09-27 22:29] LABS: PCO2 Arterial 41.3 mmHg (35-45); PO2 Arterial 56.4 mmHg (80-100); pH Blood Arterial 7.42 (7.35-7.45)
[2020-09-27 22:40] LABS: Acetaminophen, Random <2.0 ug/mL (10.0-30.0); Alanine Aminotransfer (ALT/SGP 30 U/L (12-78); Albumin, Blood 3.8 g/dL (3.4-5.0); Albumin/Globulin Ratio 1.1 (0.8-1.8); Alk Phos 65 U/L (50-136); Anion Gap 10 mmol/L (6-16); Aspartate Aminotrans (AST/SGOT 16 U/L (12-37); Bilirubin, Total 0.4 mg/dL (0.1-1.0); Blood Urea Nitrogen 61 mg/dL (8-24); CO2, Blood 28 mmol/L (21-32); Calcium, Blood 8.6 mg/dL (8.5-10.1); Chloride, Blood 92 mmol/L (98-108); Creatinine, Blood 3.38 mg/dL (0.60-1.20); Ethanol (Alcohol), Blood, Med <3 mg/dL; Globulin, Blood 3.5 g/dL (2.2-4.0); Glomerular Filtration Rate 20 (60-); Glucose, Blood 156 mg/dL (70-99); Potassium, Blood 3.9 mmol/L (3.5-5.5); Salicylate 6.2 mg/dL (2.8-20.0); Sodium, Blood 130 mmol/L (136-145); Total Protein, Blood 7.3 g/dL (6.4-8.2)
[2020-09-27 23:41] LABS: Source, Urine Catheter
[2020-09-27 23:44] LABS: Bilirubin, Urine Neg (Neg); Blood, Urine 1+ (Neg); Glucose Qualitative, Urine Neg (Neg); Ketones, Urine Neg (Neg); Leukocyte Esterase, Urine Neg (Neg); Nitrite, Urine Neg (Neg); Protein, Urine Neg (Neg); Specific Gravity, Urine 1.015 (1.003-1.022); Urobilinogen, Urine NORM (Normal)
[2020-09-27 23:57] LABS: U Amphetamine Screen Not Detected; U Barbituate Screen Not Detected; U Benzodiazapine Screen Not Detected; U Buprenorphine Screen Not Detected; U Cannabinoids Screen DETECTED; U Cocaine Screen Not Detected; U Methadone Screen Not Detected; U Methamphetamine Screen Not Detected; U Opiates Screen Not Detected; U Oxycodone Screen Not Detected; U Phencyclidine Screen Not Detected; U Propoxyphene Screen Not Detected
[2020-09-27 23:59] LABS: Appearance, Urine Clear (Clear); Bacteria Not Seen /hpf; Color, Urine Yellow (P-Yellow); Hyaline Casts 50-100 /lpf (0-2); Red Blood Cells, Urine 0-2 /hpf (0-2); Squamous Epithelial Cells Rare /hpf (Few); White Blood Cells, Urine Rare /hpf (0-5)
--- NOTE | 2020-09-28 03:40 | NUR ---
UPDATE NOTIFIED DR. LORENZO ABOUT CRITICAL LACTIC INCREASING TO 3.3 (FROM 2.7); NO NEW ORDERS PLACED AT THIS TIME.
[2020-09-28 04:35] LABS: Bun/Creatinine Ratio 20.5 (12.0-20.0); Calcium, Blood 8.7 mg/dL (8.5-10.1); Creatinine, Blood 2.63 mg/dL (0.60-1.20); Potassium, Blood 3.7 mmol/L (3.5-5.5)
--- NOTE | 2020-09-28 06:32 | NUR ---
SHIFT SUMMARY PT RESTING COMFORTABLY IN BED. NO COMPLAINTS OF PAIN SINCE ARRIVAL TO UNIT. 2L NC APPLIED WHILE ASLEEP TO KEEP SPO2 ABOVE 92%. HR 90-115'S, SBP 115'S. PT CURRENTLY RECEIVING DOPAMINE @ 9 MCG/KG/MIN AND NS @ 150 MLS/HR. ZENG PATENT AND DRAINING TO GRAVITY. PT ALERT AND ORIENTED WITH FLAT AFFECT.
--- NOTE | 2020-09-28 08:42 | NUR ---
AM NOTE... ASSUMED CARE OF PT AT 0700. PT IS A&Ox4 SLOW TO RESPOND WITH A FLAT AFFECT. PT IS ON DOPAMINE GTT RUNNING AT 9MCG/KG/MIN WITH MAPS >65. PT IS IN NSR/SINUS TACH 80'S-110'S. PT DENIES ANY CHEST PAIN/PRESSURE. PT IS ON RA WITH O2 SATS >92%, PT HAS AUDIBLE EXP WHEEZES WITH COARSENESS T/O. PT BECOMES SOB WITH ACTIVITY. PT IS A CURRENT EVERY DAY SMOKER OF 1PPD. BT PRESENT AND HYPOACTIVE, ABD IS SOFT AND NONTENDER TO PALP. PT'S ZENG IS PATENT AND DRAINING CLEAR YELLOW URINE TO GRAVITY. PT HAD A RENAL ULTRA SOUND THIS AM AND AN ECHO, WAITING ON RESULTS. DR. CARDOZA AT THE BEDSIDE TO ASSESS THE PT. THE PT WAS STARTED ON LOW SLIDING SCALE HUMALOG AND CBGs ACHS. PT HAD SAT UP ON THE SIDE OF THE BED WHILE THIS RN WAS OUT OF THE ROOM. PT BECOME SOB AND DIAPHORETIC. PT STATED HE FELT "A LITTLE DIZZY." BUT THAT "I ALWAYS FEEL LIKE THAT WHEN I GET UP." PT EDUCATED ON FALL RISK AND SAFTY WHILE IN THE HOSPITAL AND ASKED HE USE HIS CALL LIGHT WHEN HE WANTS TO TRY AND GET UP. CALL LIGHT IN REACH WILL CONTINUE TO MONITOR.
--- NOTE | 2020-09-28 08:57 | NUR ---
Echocardiogram completed.
[2020-09-28 14:24] LABS: Albumin, Blood 3.2 g/dL (3.4-5.0); Anion Gap 8 mmol/L (6-16); Blood Urea Nitrogen 40 mg/dL (8-24); Bun/Creatinine Ratio 20.8 (12.0-20.0); CO2, Blood 24 mmol/L (21-32); Calcium, Blood 8.5 mg/dL (8.5-10.1); Chloride, Blood 101 mmol/L (98-108); Creatinine, Blood 1.92 mg/dL (0.60-1.20); Glomerular Filtration Rate 38 (60-); Glucose, Blood 222 mg/dL (70-99); Phosphorus, Blood 1.7 mg/dL (2.5-4.9); Potassium, Blood 4.2 mmol/L (3.5-5.5); Sodium, Blood 133 mmol/L (136-145)
--- NOTE | 2020-09-28 14:42 | NUR ---
PT UPDATE... PT'S AT THE BEDSIDE, SHE WAS UPDATED ON THE PT'S CONDITION AND PLAN OF CARE. PT'S BP IS STABLE ON THE SOFT SIDE BUT MAPS HAVE BEEN >65. NS RUNNING AT 150MLS/HR. PT'S ZENG D/C'd AT 1230, PT HAS NOT VOIDED SINCE REMOVAL AT THIS TIME. PT WAS ABLE TO STAND AND AMBULATE TO THE TOILET TO HAVE A LARGE BM. CALL LIGHT IN REACH WILL CONTINUE TO MONITOR.
[2020-09-28] MEDS ORDERED: TIOT18 INH (15:44)
--- NOTE | 2020-09-28 17:28 | NUR ---
SHIFT SUMMARY... NO ACUTE NEGATIVE CHANGES NOTED THIS SHIFT. PT'S BP CONTINUED TO IMPROVE T/O THE DAY. PT'S L/S HAVE IMPROVED SLIGHTLY WITH DUO-NEBS. AT 1530 PT WAS ABLE TO VOID 500MLS USING THE URINAL WITHOUT ANY ISSUE. PT DENIES ANY PAIN WITH URINATION, URINE WAS LIGHT YELLOW AND CLEAR. PT HAS NOT HAD ANY SEIZURES OR SEIZURE LIKE ACTIVITY THIS SHIFT. THIS RN NOTED THAT WHEN THE PT IS ANXIOUS HIS HANDS WILL BE TREMULOUS, PT AND HIS STATE THIS IS NORMAL FOR HIM. THIS RN EDUCATED THE PT AND HIS ON DIABETES DIET, EXCERCISE AND SKIN CARE D/T HIS A1C BEING 6.7. PT AND BOTH VERBALIZE THIER UNDERSTANDING. WRITTEN EDUCATION PROVIDED TO THE PT BY THIS RN. IT WAS NOTED BY THIS RN THAT THE PT HAS APNIC PERIODS WHILE HE IS SLEEPING, PER THE HE DOES HAVE SLEEP APNEA BUT REFUSES TO WEAR THE CPAP AT HOME. PT'S O2 SATS NORMALIZE WITH 2L NC. THE PT HAS BEEN ABLE TO STAND ON THE SIDE OF THE BED TO VOID WITH THE URINAL WITH OUT ISSUE. CALL LIGHT IN REACH WILL CONTINUE TO MONITOR UNTIL REPORT IS GIVEN TO ONCOMING RN.
--- NOTE | 2020-09-28 18:50 | NUR ---
Per admit trigger, I met with Mr. Aguilar to offer information about advanced care planning. He was not interested, but took advanced directive packet regardless. Advised I would remain available to assist.
--- NOTE | 2020-09-28 20:00 | NUR ---
ASSUMING PT CARE: PT RESTING IN R SIDE LAYING POSITION, SLEEPING. AWAKES WHEN STAFF ENTERS ROOM. APPROPRIATELY INTERACTIVE W/ STAFF. DENIES ANY COMPLAINTS. WHILE LAYING W/ HOB DOWN, PT IS MILDLY HYPOTENSIVE MAPs 60-65. ONCE HOB IS RAISED, HYPOTENSION RESOLVES. VS OTHERWISE WNL. WILL MONITOR CLOSELY T/O SHIFT.
--- NOTE | 2020-09-29 06:00 | NUR ---
SHIFT SUMMARY: PT RESTED WELL T/O THE NIGHT. AWAKING & USING CALL LIGHT APPROPRIATELY TO USE THE URINAL. PT HYPOTENSIVE @ TIMES WHEN LAYING FLAT, RESOLVED W/ POSITION CHANGES. HE REMAINED SYMPTOMATIC W/ EACH EPISODE. CONTINUES TO BE DYSPNEIC UPON EXERTION W/ HR INC TO 120s. NO ACUTE NEG CHANGES THIS SHIFT.
[2020-09-29 06:13] LABS: Albumin, Blood 3.1 g/dL (3.4-5.0); Anion Gap 6 mmol/L (6-16); Blood Urea Nitrogen 31 mg/dL (8-24); Bun/Creatinine Ratio 21.7 (12.0-20.0); CO2, Blood 26 mmol/L (21-32); Calcium, Blood 8.5 mg/dL (8.5-10.1); Chloride, Blood 106 mmol/L (98-108); Creatinine, Blood 1.43 mg/dL (0.60-1.20); Glomerular Filtration Rate 54 (60-); Glucose, Blood 141 mg/dL (70-99); Phosphorus, Blood 2.5 mg/dL (2.5-4.9); Sodium, Blood 138 mmol/L (136-145)
--- NOTE | 2020-09-29 07:30 | NUR ---
PT AWAKE, DENIES ANY COMPLAINTS, JUST FINISHING BREATHING TREATMENT. PT HAS AUDIBLE WHEEZES AT THE BEDSIDE, LUNG SOUNDS ARE DIMINISHED IN THE BASES WITH EXPIRATORY WHEEZE IN THE UPPER LOBES. PT DENIES SHORTNESS OF BREATH, ALTHOUGH HE APPEARS TO HAVE LABORED BREATHING WITH ACTIVITY. HE STATES THAT HE IS ALWAYS THAT WAY. USES THE URINAL INDEPENDENTLY AND IS ASKING FOR BREAKFAST.
--- NOTE | 2020-09-29 10:30 | NUR ---
PT AWAKENS FROM NAP, INDEPENDENT IN THE ROOM, GIVEN TOOTHBRUSH, TOOTHPASTE, WASHCLOTHS, ABLE TO DO HIS OWN CARE. DENIES ANY COMPLAINTS.
--- NOTE | 2020-09-29 11:48 | NUR ---
AND IN TO SEE PATIENT, SPOKE WITH , WHO WAS ON THE PHONE WELL. PT WILL BE GIVEN DISCHARGE LATER THIS AFTERNOON AFTER HIS IV FLUIDS ARE INFUSED. NOTE REQUESTED TO "RETURN TO WORK", GIVEN. PT WITH SLIGHT INCREASE IN HIS CBG, COVERAGE GIVEN. LUNCH BROUGHT IN.
--- NOTE | 2020-09-29 13:54 | NUR ---
LAURA HAD LUNCH, HAD A RESPIRATORY TREATMENT AND IS QUIETLY NAPPING.
--- NOTE | 2020-09-29 15:31 | NUR ---
LAURA AND NICK GIVEN D/C INSTRUCTIONS, QUESTIONS ANSWERED, COPY GIVEN. PT'S CENTRAL LINE REMOVED, PRESSURE HELD, VASELINE GAUZE, GAUZE AND TEGADERM PLACED WITH NO EVIDENCE OF BLEEDING. PT THEN GOT DRESSED, TO WHEELCHAIR, DC TO CARE OF WHO IS THE MEDIA TRAFFIC MANAGER.
--- NOTE | 2020-09-29 18:09 | NUR ---
Per admit trigger, I met with Asif to offer information on advanced care planning. He was sleepy and told me he was not interested.
== END 2020-09-29 15:33 | disposition home or self-care (01) | DRG 682 ==
LOC: ER 21:40 → ICUW 09-28 00:17 → ICUE 09-28 00:17
PROVIDERS: Emergency Medicine; Family Medicine; ADMIT Internal Medicine
PROC: 02HV33Z Insertion of Infusion Device into Superior Vena Cava, Percutaneous Approach (ICD-10-PCS; principal; 2020-09-27)
DX: N17.9 Acute kidney failure, unspecified (principal); R57.1 Hypovolemic shock; E87.1 Hypo-osmolality and hyponatremia; J44.1 Chronic obstructive pulmonary disease with (acute) exacerbation; I12.9 Hypertensive chronic kidney disease with stage 1 through stage 4 chronic kidney disease, or unspecified chronic kidney disease; F17.210 Nicotine dependence, cigarettes, uncomplicated; R09.02 Hypoxemia; T50.2X5A Adverse effect of carbonic-anhydrase inhibitors, benzothiadiazides and other diuretics, initial encounter; N18.30 Chronic kidney disease, stage 3 unspecified; E66.9 Obesity, unspecified; E78.5 Hyperlipidemia, unspecified; R73.9 Hyperglycemia, unspecified; G40.909 Epilepsy, unspecified, not intractable, without status epilepticus; Z98.890 Other specified postprocedural states; Z86.010 Personal history of colon polyps; Z88.5 Allergy status to narcotic agent; Z79.82 Long term (current) use of aspirin; Z79.899 Other long term (current) drug therapy; Z71.6 Tobacco abuse counseling
CPT/HCPCS: 36415; 36556; 36600; 51702; 70450; 71045; 71046; 76770; 80048; 80053; 80069; 80177; 81001; 82803; 82947; 83036; 83605; 83690; 85025; 87040; 93005; 93010; 93308; 93321; 94640; 94644; 96361-59; 96365-59; 96366-59; 96375-59; 99285-25; A9270; C1751; G0480; J1265; J1644; J2930; J7030; J7120; J7512

== ENCOUNTER 2021-08-25 08:05 | Emergency (ER) | payer OTHER ==
[~2021-08-25] VITALS: Ht 177.8 cm; Wt 117.9 kg
[~2021-08-25 08:05] MED LIST changes: +TIOT18 INH
[2021-08-25 10:06] LABS: BASOPHILS ABSOLUTE AUTO 0.07 K/mm3 (0.00-0.23); BASOPHILS PERCENT AUTO 1 % (0-2); EOSINOPHILS ABSOLUTE AUTO 0.08 K/mm3 (0.00-0.68); EOSINOPHILS PERCENT AUTO 1 % (0-6); Hematocrit 50.6 % (37.0-53.0); Hemoglobin 16.8 g/dL (13.5-17.5); IMMATURE GRAN ABSOLUTE AUTO 0.05 K/mm3 (0.00-0.10); IMMATURE GRAN PERCENT AUTO 1 % (0-1); LYMPHOCYTES ABSOLUTE AUTO 1.68 K/mm3 (0.84-5.20); LYMPHOCYTES PERCENT AUTO 19 % (21-46); MONOCYTES ABSOLUTE AUTO 0.72 K/mm3 (0.16-1.47); MONOCYTES PERCENT AUTO 8 % (4-13); Mean Corpuscular HGB 29.9 pg (26.0-34.0); Mean Corpuscular HGB Conc 33.2 g/dL (31.5-36.5); Mean Corpuscular Volume 90 fL (80-100); Mean Platelet Volume 9.6 fL (9.1-12.4); NEUTROPHILS ABSOLUTE AUTO 6.43 K/mm3 (1.96-9.15); NEUTROPHILS PERCENT AUTO 71 % (41-73); Platelet Count 239 K/mm3 (150-400); RDW Coefficient Variation 13.4 % (11.7-14.2); Red Blood Cell Count 5.61 M/mm3 (4.30-5.90); White Blood Cell Count 9.03 K/mm3 (4.00-11.30)
[2021-08-25 10:27] LABS: Alanine Aminotransfer (ALT/SGP 62 U/L (12-78); Albumin/Globulin Ratio 0.9 (0.8-1.8); Alk Phos 77 U/L (50-136); Anion Gap 6 mmol/L (6-16); Aspartate Aminotrans (AST/SGOT 35 U/L (12-37); Bilirubin, Total 0.4 mg/dL (0.1-1.0); Blood Urea Nitrogen 24 mg/dL (8-24); Bun/Creatinine Ratio 22.6 (12.0-20.0); CO2, Blood 29 mmol/L (21-32); Calcium, Blood 9.7 mg/dL (8.5-10.1); Chloride, Blood 99 mmol/L (98-108); Creatinine, Blood 1.06 mg/dL (0.60-1.20); Globulin, Blood 4.5 g/dL (2.2-4.0); Glomerular Filtration Rate >60 (60-); Glucose, Blood 235 mg/dL (70-99); Potassium, Blood 4.1 mmol/L (3.5-5.5); Sodium, Blood 134 mmol/L (136-145); Total Protein, Blood 8.5 g/dL (6.4-8.2)
[2021-08-25 10:27] LABS: Source, Urine Clean Catch
[2021-08-25 10:42] LABS: Appearance, Urine Clear (Clear); Bilirubin, Urine Neg (Neg); Blood, Urine 2+ (Neg); Color, Urine Amber (P-Yellow); Glucose Qualitative, Urine Neg (Neg); Ketones, Urine Neg (Neg); Leukocyte Esterase, Urine Neg (Neg); Nitrite, Urine Neg (Neg); Protein, Urine 2+ (Neg); Urobilinogen, Urine NORM (Normal)
[2021-08-25] MEDS ORDERED: Potassium Chlo20 ME1 PO (10:52)
[2021-08-25] MEDS ORDERED: BUME2 PO (10:53)
[2021-08-25] MEDS ORDERED: SPIRONOLACTONE25 MG PO (10:54)
[2021-08-25] MEDS ORDERED: METO5 PO (10:56)
[2021-08-25] MEDS ORDERED: METOPROLOL SUCC25 MG PO (10:57)
[2021-08-25 11:01] LABS: Bacteria Not Seen /hpf; Squamous Epithelial Cells Few /hpf (Few); White Blood Cells, Urine Not Seen /hpf (0-5)
[2021-08-25 12:15] LABS: Influenza A, PCR NEGATIVE (NEGATIVE); Influenza B, PCR NEGATIVE (NEGATIVE); Resp Syncytial Virus, PCR NEGATIVE (NEGATIVE); SARS-Cov-2 (COVID-19) PCR, MMC NEGATIVE (NEGATIVE)
[2021-08-25] MEDS ORDERED: ONDA4ODT MM (13:37)
[2021-08-25] MEDS ORDERED: COMBIVENT RESPIM4 G1 INH (13:37)
[2021-08-25] MEDS ORDERED: DOXY100 PO (13:37)
[2021-08-25] MEDS ORDERED: PRED20 PO (13:37)
== END 2021-08-25 14:10 | disposition home or self-care (01) ==
LOC: ER 08:05
PROVIDERS: Physician Assistant; Student in an Organized Health Care Education/Training Program
DX: J44.1 Chronic obstructive pulmonary disease with (acute) exacerbation (principal); B34.9 Viral infection, unspecified; R10.9 Unspecified abdominal pain; Z20.822 Contact with and (suspected) exposure to COVID-19; Z88.5 Allergy status to narcotic agent; Z79.899 Other long term (current) drug therapy; Z79.82 Long term (current) use of aspirin; I10 Essential (primary) hypertension; E78.00 Pure hypercholesterolemia, unspecified; G40.909 Epilepsy, unspecified, not intractable, without status epilepticus; E11.9 Type 2 diabetes mellitus without complications; F17.210 Nicotine dependence, cigarettes, uncomplicated
CPT/HCPCS: 0241U; 36415; 71046; 74177; 80053; 81001; 82010; 82947; 83690; 83735; 85025; 94640; 96374; 96375; 99284-25; A9270; J1885; J2765; J7030; J7512; Q9967

== ENCOUNTER 2021-11-03 11:00 | Emergency (ER) | payer OTHER ==
[~2021-11-03] VITALS: Ht 177.8 cm; Wt 117.9 kg
[~2021-11-03 11:00] MED LIST changes: +COMBIVENT RESPIM4 G1 INH; +DOXY100 PO; +METOPROLOL SUCC25 MG PO; +ONDA4ODT MM; +PRED20 PO; +Potassium Chlo20 ME1 PO; +SPIRONOLACTONE25 MG PO
[2021-11-03 11:57] LABS: BASOPHILS ABSOLUTE AUTO 0.07 K/mm3 (0.00-0.23); BASOPHILS PERCENT AUTO 1 % (0-2); EOSINOPHILS ABSOLUTE AUTO 0.02 K/mm3 (0.00-0.68); EOSINOPHILS PERCENT AUTO 0 % (0-6); Hematocrit 53.1 % (37.0-53.0); Hemoglobin 18.4 g/dL (13.5-17.5); IMMATURE GRAN ABSOLUTE AUTO 0.07 K/mm3 (0.00-0.10); IMMATURE GRAN PERCENT AUTO 1 % (0-1); LYMPHOCYTES ABSOLUTE AUTO 1.66 K/mm3 (0.84-5.20); LYMPHOCYTES PERCENT AUTO 14 % (21-46); MONOCYTES ABSOLUTE AUTO 0.82 K/mm3 (0.16-1.47); MONOCYTES PERCENT AUTO 7 % (4-13); Mean Corpuscular HGB 30.9 pg (26.0-34.0); Mean Corpuscular HGB Conc 34.7 g/dL (31.5-36.5); Mean Corpuscular Volume 89 fL (80-100); Mean Platelet Volume 9.9 fL (9.1-12.4); NEUTROPHILS ABSOLUTE AUTO 9.42 K/mm3 (1.96-9.15); NEUTROPHILS PERCENT AUTO 78 % (41-73); Platelet Count 292 K/mm3 (150-400); RDW Coefficient Variation 14.6 % (11.7-14.2); RDW Standard Deviation 47.1 fL (35.1-46.3); Red Blood Cell Count 5.96 M/mm3 (4.30-5.90); White Blood Cell Count 12.06 K/mm3 (4.00-11.30)
[2021-11-03 12:14] LABS: Albumin, Blood 4.6 g/dL (3.4-5.0); Albumin/Globulin Ratio 0.9 (0.8-1.8); Bilirubin, Total 0.8 mg/dL (0.1-1.0); Bun/Creatinine Ratio 16.8 (12.0-20.0); Creatinine, Blood 1.79 mg/dL (0.60-1.20); Globulin, Blood 4.9 g/dL (2.2-4.0); Potassium, Blood 3.7 mmol/L (3.5-5.5); Total Protein, Blood 9.5 g/dL (6.4-8.2)
[2021-11-03 12:16] LABS: Influenza A, PCR NEGATIVE (NEGATIVE); Influenza B, PCR NEGATIVE (NEGATIVE); Resp Syncytial Virus, PCR NEGATIVE (NEGATIVE); SARS-Cov-2 (COVID-19) PCR, MMC NEGATIVE (NEGATIVE)
[2021-11-03 18:32] LABS: Source, Urine Clean Catch
[2021-11-03 18:34] LABS: Appearance, Urine Clear (Clear); Bilirubin, Urine Neg (Neg); Blood, Urine 3+ (Neg); Color, Urine Yellow (P-Yellow); Glucose Qualitative, Urine Neg (Neg); Ketones, Urine 1+ (Neg); Leukocyte Esterase, Urine Neg (Neg); Nitrite, Urine Neg (Neg); Protein, Urine 2+ (Neg); Urobilinogen, Urine NORM (Normal)
[2021-11-03 18:43] LABS: Amorphous Light (0-Heavy); Bacteria Many /hpf; Calcium Oxalate Crystals Few /hpf; Squamous Epithelial Cells Few /hpf (Few); White Blood Cells, Urine 0-2 /hpf (0-5)
[2021-11-03] MEDS ORDERED: ONDA4ODT MM (18:59)
== END 2021-11-03 19:26 | disposition home or self-care (01) ==
LOC: ER 11:00
PROVIDERS: Physician Assistant
DX: R10.84 Generalized abdominal pain (principal); R11.2 Nausea with vomiting, unspecified; E86.0 Dehydration; I10 Essential (primary) hypertension; J44.9 Chronic obstructive pulmonary disease, unspecified; E11.9 Type 2 diabetes mellitus without complications; F17.210 Nicotine dependence, cigarettes, uncomplicated; Z20.822 Contact with and (suspected) exposure to COVID-19; Z79.82 Long term (current) use of aspirin; Z79.899 Other long term (current) drug therapy; Z88.5 Allergy status to narcotic agent
CPT/HCPCS: 0241U; 36415; 74176; 80053; 81001; 83690; 85025; 96361; 96374; 96376; 99284-25; J2405; J7030

== ENCOUNTER 2021-11-11 14:54 | Emergency (ER) | payer OTHER ==
[~2021-11-11] VITALS: Ht 177.8 cm; Wt 120.2 kg
[2021-11-11 15:48] LABS: BASOPHILS ABSOLUTE AUTO 0.07 K/mm3 (0.00-0.23); BASOPHILS PERCENT AUTO 1 % (0-2); EOSINOPHILS ABSOLUTE AUTO 0.19 K/mm3 (0.00-0.68); EOSINOPHILS PERCENT AUTO 2 % (0-6); Hematocrit 44.9 % (37.0-53.0); Hemoglobin 16.4 g/dL (13.5-17.5); IMMATURE GRAN ABSOLUTE AUTO 0.11 K/mm3 (0.00-0.10); IMMATURE GRAN PERCENT AUTO 1 % (0-1); LYMPHOCYTES ABSOLUTE AUTO 2.52 K/mm3 (0.84-5.20); LYMPHOCYTES PERCENT AUTO 21 % (21-46); MONOCYTES ABSOLUTE AUTO 1.12 K/mm3 (0.16-1.47); MONOCYTES PERCENT AUTO 10 % (4-13); Mean Corpuscular HGB 30.7 pg (26.0-34.0); Mean Corpuscular HGB Conc 36.5 g/dL (31.5-36.5); Mean Corpuscular Volume 84 fL (80-100); Mean Platelet Volume 10.3 fL (9.1-12.4); NEUTROPHILS ABSOLUTE AUTO 7.76 K/mm3 (1.96-9.15); NEUTROPHILS PERCENT AUTO 66 % (41-73); Platelet Count 294 K/mm3 (150-400); RDW Coefficient Variation 13.5 % (11.7-14.2); RDW Standard Deviation 41.5 fL (35.1-46.3); Red Blood Cell Count 5.34 M/mm3 (4.30-5.90); White Blood Cell Count 11.77 K/mm3 (4.00-11.30)
[2021-11-11 16:40] LABS: Albumin, Blood 3.8 g/dL (3.4-5.0); Albumin/Globulin Ratio 0.9 (0.8-1.8); Bilirubin, Total 0.6 mg/dL (0.1-1.0); Bun/Creatinine Ratio 40.4 (12.0-20.0); Calcium, Blood 10.3 mg/dL (8.5-10.1); Creatinine, Blood 1.83 mg/dL (0.60-1.20); Globulin, Blood 4.1 g/dL (2.2-4.0); Total Protein, Blood 7.9 g/dL (6.4-8.2)
== END 2021-11-11 20:36 | disposition home or self-care (01) ==
LOC: ER 14:54
PROVIDERS: Student in an Organized Health Care Education/Training Program
DX: K92.1 Melena (principal); E87.6 Hypokalemia; I10 Essential (primary) hypertension; J44.9 Chronic obstructive pulmonary disease, unspecified; G40.909 Epilepsy, unspecified, not intractable, without status epilepticus; E11.9 Type 2 diabetes mellitus without complications; K21.9 Gastro-esophageal reflux disease without esophagitis; F17.200 Nicotine dependence, unspecified, uncomplicated; Z88.5 Allergy status to narcotic agent; Z79.899 Other long term (current) drug therapy; Z79.52 Long term (current) use of systemic steroids; Z79.82 Long term (current) use of aspirin
CPT/HCPCS: 74176; 80053; 82947; 85025; 93005; 93010; A9270; J3480; J7030

== ENCOUNTER 2022-03-21 07:54 | Day surgery (SDC) | payer MEDICARE, OTHER ==
[~2022-03-21] VITALS: Ht 177.8 cm; Wt 116.4 kg
[~2022-03-21 07:54] MED LIST changes: +ELLIPTA INH
--- NOTE | 2022-03-21 10:03 | NUR ---
899 PT WAS UNABLE TO REMEMBER HIS MEDICATION LIST WELL, BUT DID PROVIDE A WRITTEN LIST. PT WAS UNSURE OF LAST DOSAGES ON MEDICATIONS. PT WAS ABLE TO PROVIDE MEDICAL HX. CONFIRMED NPO STATUS WITH PT. PT STATED BOWEL PREP WAS COMPLETED WITH CLEAR RESULTS. 925 RHONCI AUSCULTATED THROUGHOUT LUNGS, SCATTERED INSPIRATORY WHEEZES. DR AKINS NOTIFIED, NO NEW ORDERS. CBG RESULTS [address] AKINS CANCELLED PROCEDURE. ORDERS OBTAINED TO TREAT PRIOR TO D/C TO HOME. 949 PHONECALL APPOINTMENT MADE TO PCP, DR SANDS. PT AGREES TO FOLLOWUP WITH APPOINTMENT SCHEDULED THIS WEEK Monday03/24/22. AT BEDSIDE, ALSO CONFIRMS PT WILL GO TO APPOINTMENT THIS WEEK. 954 TREATED WITH INSULIN PER ORDER. WILL REPEAT CBG PER ORDER.
--- NOTE | 2022-03-21 10:46 | NUR ---
1020 DR AKINS NOTIFIED OF REPEAT CBG, NO NEW ORDERS PER DR AKINS. PT READY FOR D/C PER DR. AKINS. 1037 PT TAKEN OUT OF UNIT VIA WHEELCHAIR.
== END 2022-03-21 23:40 | disposition home or self-care (01) ==
LOC: ORSCMMR 07:54 → ORD 09:00 → ORSCMMR 09:00
DX: K22.70 Barrett's esophagus without dysplasia (principal); Z86.010 Personal history of colon polyps; Z53.9 Procedure and treatment not carried out, unspecified reason
CPT/HCPCS: 82947; J1815; J7120

== ENCOUNTER 2023-02-16 06:20 | Day surgery (SDC) | payer MEDICARE, OTHER ==
[~2023-02-16] VITALS: Ht 176 cm; Wt 112.5 kg
[2023-02-16 06:49] VITALS: BP 136/94
[2023-02-16] MEDS ORDERED: METF500 PO (07:21)
[2023-02-16] MEDS ORDERED: FARXIGA10 MG PO (07:25)
[2023-02-16] MEDS ORDERED: PRAM.5 PO (07:27)
[2023-02-16] MEDS ORDERED: RYBELSUS14 MG PO (07:28)
[2023-02-16] MEDS ORDERED: TRESIBA FL200 UNIT/2 SC (07:30)
--- NOTE | 2023-02-16 07:33 | NUR ---
Ambulatory in Day Surgery with SBA. History, Chart, Medications and Allergies reviewed before start of procedure. Patient confirms NPO status and agrees with scheduled surgery. Patient States Post-Procedure ride home has been arranged.
--- NOTE | 2023-02-16 07:55 | NUR ---
02/16/[address] RDZ ANESTHESIA RECORD
[2023-02-16 08:21] VITALS: BP 114/80
--- NOTE | 2023-02-16 08:24 | NUR ---
REPORT RECEIVED FROM AMADOU BRICENO RN. VSS. PT ABLE TO REPOSITION SELF IN BED. PT REQUESTING PO FLUIDS AND TOLERATING THEM WELL. PT DENIES PAIN, NAUSEA OR OTHER DISCOMFORTS. AT BEDSIDE.
[2023-02-16 08:31] VITALS: BP 136/88
--- NOTE | 2023-02-16 08:44 | NUR ---
Patient up to Ambulate independently. Gait steady. VSS AND CONSISTENT WITH PT BASELINE. Discharge instructions reviewed with patient. Patient verbalizes understanding. Copy given to patient to take home. Patient States Post-Procedure ride home has been arranged. Discharged via wheelchair to private car for ride home. PT BELONGINGS RETURNED TO PT.
== END 2023-02-16 08:49 | disposition home or self-care (01) ==
LOC: ORSCMMR 06:20 → ORD 08:00 → ORSCMMR 08:49
PROVIDERS: Internal Medicine Gastroenterology
PROC: 0DB48ZX Excision of Esophagogastric Junction, Via Natural or Artificial Opening Endoscopic, Diagnostic (ICD-10-PCS; principal; 2023-02-16 08:00)
PROC: 0DB58ZX Excision of Esophagus, Via Natural or Artificial Opening Endoscopic, Diagnostic (ICD-10-PCS; principal; 2023-02-16 08:00)
DX: K22.70 Barrett's esophagus without dysplasia (principal); Z86.010 Personal history of colon polyps; G47.30 Sleep apnea, unspecified; J44.9 Chronic obstructive pulmonary disease, unspecified; F32.A Depression, unspecified; E11.9 Type 2 diabetes mellitus without complications; E78.00 Pure hypercholesterolemia, unspecified; E66.9 Obesity, unspecified; Z68.36 Body mass index [BMI] 36.0-36.9, adult; F17.210 Nicotine dependence, cigarettes, uncomplicated; Z79.82 Long term (current) use of aspirin; Z79.899 Other long term (current) drug therapy
CPT/HCPCS: 82947; 88305; 88312; J2704; J7120

== ENCOUNTER 2023-04-24 12:06 | Emergency (ER) | payer MEDICARE, OTHER ==
[~2023-04-24] VITALS: Ht 177.8 cm; Wt 117.9 kg
[~2023-04-24 12:06] MED LIST changes: +FARXIGA10 MG PO; +METF500 PO; +PRAM.5 PO; +RYBELSUS14 MG PO; +TRESIBA FL200 UNIT/2 SC
[2023-04-24 12:35] VITALS: BP 120/83
== END 2023-04-24 14:16 | disposition home or self-care (01) ==
LOC: ER 12:06
DX: R22.32 Localized swelling, mass and lump, left upper limb (principal); Z53.29 Procedure and treatment not carried out because of patient's decision for other reasons
CPT/HCPCS: 99282

== ENCOUNTER 2023-05-09 07:25 | Emergency (ER) | payer MEDICARE, OTHER ==
[~2023-05-09] VITALS: Ht 170.2 cm; Wt 90.7 kg
[2023-05-09 07:42] VITALS: BP 140/103
== END 2023-05-09 08:27 | disposition home or self-care (01) ==
LOC: ER 07:25
DX: S60.445A External constriction of left ring finger, initial encounter (principal); W49.04XA Ring or other jewelry causing external constriction, initial encounter; I10 Essential (primary) hypertension; E78.5 Hyperlipidemia, unspecified; J44.9 Chronic obstructive pulmonary disease, unspecified; G47.30 Sleep apnea, unspecified; E11.9 Type 2 diabetes mellitus without complications; K21.9 Gastro-esophageal reflux disease without esophagitis; F32.A Depression, unspecified; G40.909 Epilepsy, unspecified, not intractable, without status epilepticus; F17.210 Nicotine dependence, cigarettes, uncomplicated; Z79.899 Other long term (current) drug therapy; Z79.82 Long term (current) use of aspirin; Z79.4 Long term (current) use of insulin; Z79.84 Long term (current) use of oral hypoglycemic drugs; Z88.5 Allergy status to narcotic agent
CPT/HCPCS: 99283

== ENCOUNTER 2023-11-06 08:40 | Day surgery (SDC) | payer MEDICARE, OTHER ==
[~2023-11-06] VITALS: Ht 177.8 cm; Wt 107.4 kg
[~2023-11-06 08:40] MED LIST changes: +Lactated Ringer's 1,000 ML IV ONE; +propofoL 50 ML IV ONE
[2023-11-06] MEDS ORDERED: AMITRIPTYLINE100 M1 PO (09:39)
[2023-11-06] MEDS ORDERED: VILAZODONE HCL10 MG PO (09:41)
[2023-11-06] MEDS ORDERED: PROAIR RESPICL90 MCG (09:43)
[2023-11-06] MEDS ORDERED: ANORO ELLIPTA1 EAC1 (09:44)
[2023-11-06] MEDS ORDERED: FENO48 (09:44)
[2023-11-06] MEDS ORDERED: IBUP800 (09:45)
[2023-11-06] MEDS ORDERED: Lactated Ringer's 1,000 ML IV ONE (10:20)
[2023-11-06] MEDS ORDERED: Ipratropium/Albuterol SulF 2.5-0.5MG/3 ML Amp ONE (10:35)
--- NOTE | 2023-11-06 10:41 | NUR ---
11/06/[address]
[2023-11-06 12:07] VITALS: BP 106/77
== END 2023-11-06 12:03 | disposition home or self-care (01) ==
LOC: ORSCSDS 08:40
PROVIDERS: Internal Medicine Gastroenterology
PROC: 0DBM8ZX Excision of Descending Colon, Via Natural or Artificial Opening Endoscopic, Diagnostic (ICD-10-PCS; principal; 2023-11-06 10:15)
PROC: 0DBL8ZX Excision of Transverse Colon, Via Natural or Artificial Opening Endoscopic, Diagnostic (ICD-10-PCS; principal; 2023-11-06 10:15)
PROC: 0DBN8ZX Excision of Sigmoid Colon, Via Natural or Artificial Opening Endoscopic, Diagnostic (ICD-10-PCS; principal; 2023-11-06 10:15)
DX: K62.5 Hemorrhage of anus and rectum (principal); Z86.010 Personal history of colon polyps; D12.3 Benign neoplasm of transverse colon; D12.4 Benign neoplasm of descending colon; D12.5 Benign neoplasm of sigmoid colon; K63.5 Polyp of colon; J44.9 Chronic obstructive pulmonary disease, unspecified; E11.9 Type 2 diabetes mellitus without complications; I10 Essential (primary) hypertension; F17.210 Nicotine dependence, cigarettes, uncomplicated; G40.909 Epilepsy, unspecified, not intractable, without status epilepticus; F32.A Depression, unspecified; Z79.899 Other long term (current) drug therapy; Z79.84 Long term (current) use of oral hypoglycemic drugs; Z68.34 Body mass index [BMI] 34.0-34.9, adult
CPT/HCPCS: 82947; 88305; J2704; J7120

== ENCOUNTER → 2024-09-02 | Outpatient (CLI) | payer MEDICARE, OTHER ==
[~2024-09-02] MED LIST changes: +AMITRIPTYLINE100 M1 PO; +ANORO ELLIPTA1 EAC1; +FENO48; +IBUP800; -Lactated Ringer's 1,000 ML IV ONE; +PROAIR RESPICL90 MCG; +VILAZODONE HCL10 MG PO; -propofoL 50 ML IV ONE
[2024-09-02 11:39] LABS: BASOPHILS ABSOLUTE AUTO 0.12 K/mm3 (0.00-0.23); BASOPHILS PERCENT AUTO 1 % (0-2); EOSINOPHILS PERCENT AUTO 4 % (0-6); Hematocrit 48.1 % (37.0-53.0); Hemoglobin 16.1 g/dL (13.5-17.5); IMMATURE GRAN ABSOLUTE AUTO 0.04 K/mm3 (0.00-0.10); IMMATURE GRAN PERCENT AUTO 1 % (0-1); LYMPHOCYTES ABSOLUTE AUTO 2.95 K/mm3 (0.84-5.20); LYMPHOCYTES PERCENT AUTO 35 % (21-46); MONOCYTES ABSOLUTE AUTO 0.65 K/mm3 (0.16-1.47); MONOCYTES PERCENT AUTO 8 % (4-13); Mean Corpuscular HGB 30.1 pg (26.0-34.0); Mean Corpuscular HGB Conc 33.5 g/dL (31.5-36.5); Mean Corpuscular Volume 90 fL (80-100); Mean Platelet Volume 10.2 fL (9.1-12.4); NEUTROPHILS PERCENT AUTO 51 % (41-73); Platelet Count 230 K/mm3 (150-400); RDW Coefficient Variation 13.4 % (11.7-14.2); RDW Standard Deviation 44.1 fL (35.1-46.3); Red Blood Cell Count 5.34 M/mm3 (4.30-5.90); White Blood Cell Count 8.36 K/mm3 (4.00-11.30)
[2024-09-02 14:37] LABS: Alanine Aminotransfer (ALT/SGP 25 U/L (12-78); Albumin, Blood 3.8 g/dL (3.4-5.0); Albumin/Globulin Ratio 1.1 (0.8-1.8); Alk Phos 92 U/L (50-136); Anion Gap 10 mmol/L (3-11); Aspartate Aminotrans (AST/SGOT 15 U/L (12-37); Bilirubin, Total 0.3 mg/dL (0.1-1.0); Blood Urea Nitrogen 10 mg/dL (8-24); CHOL/HDL RATIO 4.2; CO2, Blood 23 mmol/L (21-32); Calcium, Blood 8.9 mg/dL (8.5-10.1); Chloride, Blood 107 mmol/L (98-108); Cholesterol 148 mg/dL (50-200); Globulin, Blood 3.4 g/dL (2.2-4.0); Glucose, Blood 107 mg/dL (70-99); HDL Cholesterol 35 mg/dL (>39); Iron Serum 66 ug/dL (65-175); LDL/HDL RATIO Unable to Calculate; Low Density Lipoprotein Chol Unable to Calculate mg/dL (0-110); Percent Saturation 16.5 % (20.0-50.0); Potassium, Blood 3.9 mmol/L (3.5-5.5); Prostate Specific Antigen 0.281 ng/mL (0.000-4.000); Sodium, Blood 136 mmol/L (136-145); Total Iron Binding Capacity 400 ug/dL (250-450); Total Protein, Blood 7.2 g/dL (6.4-8.2); Triglycerides 466 mg/dL (30-160); Very Low Density Lipoprot Chol Unable to Calculate mg/dL (6-32)
[2024-09-02 14:59] LABS: Bun/Creatinine Ratio 11.3 (12.0-20.0); Creatinine, Blood 0.88 mg/dL (0.60-1.20); Glomerular Filtration Rate 97 (60-)
[2024-09-02 15:17] LABS: LDL Direct Measurement 69 mg/dL (0-130)
== END | disposition home or self-care (01) ==
LOC: LAB 10:53 → LAB SHORT 10:53
PROVIDERS: Nurse Practitioner Family
DX: Z12.5 Encounter for screening for malignant neoplasm of prostate (principal); E11.42 Type 2 diabetes mellitus with diabetic polyneuropathy; E11.65 Type 2 diabetes mellitus with hyperglycemia; E11.69 Type 2 diabetes mellitus with other specified complication; I10 Essential (primary) hypertension; R53.83 Other fatigue
CPT/HCPCS: 80053; 80061; 83036; 83540; 83550; 83721; 83880; 85025; G0103

== ENCOUNTER 2025-03-24 18:35 | Emergency (ER) | payer MEDICARE ==
[~2025-03-24] VITALS: Ht 175.3 cm; Wt 117.9 kg
[2025-03-24 19:20] LABS: BASOPHILS ABSOLUTE AUTO 0.09 K/mm3 (0.00-0.23); BASOPHILS PERCENT AUTO 1 % (0-2); EOSINOPHILS ABSOLUTE AUTO 0.26 K/mm3 (0.00-0.68); EOSINOPHILS PERCENT AUTO 4 % (0-6); Hematocrit 46.8 % (37.0-53.0); Hemoglobin 15.7 g/dL (13.5-17.5); IMMATURE GRAN ABSOLUTE AUTO 0.03 K/mm3 (0.00-0.10); IMMATURE GRAN PERCENT AUTO 0 % (0-1); LYMPHOCYTES ABSOLUTE AUTO 2.30 K/mm3 (0.84-5.20); LYMPHOCYTES PERCENT AUTO 33 % (21-46); MONOCYTES ABSOLUTE AUTO 0.52 K/mm3 (0.16-1.47); MONOCYTES PERCENT AUTO 7 % (4-13); Mean Corpuscular HGB Conc 33.5 g/dL (31.5-36.5); Mean Corpuscular Volume 89 fL (80-100); NEUTROPHILS ABSOLUTE AUTO 3.87 K/mm3 (1.96-9.15); NEUTROPHILS PERCENT AUTO 55 % (41-73); NRBC ABSOLUTE 0.00 K/mm3 (0.00-0.02); NRBC Auto 0.0 /100 WBC (0.0-0.2); Platelet Count 229 K/mm3 (150-400); RDW Coefficient Variation 13.9 % (11.7-14.2); RDW Standard Deviation 45.2 fL (35.1-46.3)
[2025-03-24] MEDS ORDERED: Albuterol 2.5 MG/3 ML VIAL INH ONE (19:40)
[2025-03-24 19:43] LABS: Alanine Aminotransfer (ALT/SGP 32.0 U/L (12-78); Albumin, Blood 3.6 g/dL (3.4-5.0); Albumin/Globulin Ratio 1.1 (0.8-1.8); Anion Gap 8.0 mmol/L (3-11); Aspartate Aminotrans (AST/SGOT 27.0 U/L (12-37); Bilirubin, Total 0.8 mg/dL (0.1-1.0); Blood Urea Nitrogen 13.0 mg/dL (8-24); CO2, Blood 24.0 mmol/L (21-32); Calcium, Blood 8.5 mg/dL (8.5-10.1); Chloride, Blood 108.0 mmol/L (98-108); Creatinine, Blood 1.31 mg/dL (0.60-1.20); Globulin, Blood 3.4 g/dL (2.2-4.0); Glucose, Blood 149.0 mg/dL (70-99); Potassium, Blood 3.4 mmol/L (3.5-5.5); Sodium, Blood 137.0 mmol/L (136-145); Total Protein, Blood 7.0 g/dL (6.4-8.2)
[2025-03-24] MEDS ORDERED: AZIT250 PO (20:39)
[2025-03-24] MEDS ORDERED: PRED20 PO (20:39)
[2025-03-24 21:02] VITALS: BP 142/102
== END 2025-03-24 21:10 | disposition home or self-care (01) ==
LOC: ER 18:35
PROVIDERS: Emergency Medicine
DX: J44.1 Chronic obstructive pulmonary disease with (acute) exacerbation (principal); Z88.8 Allergy status to other drugs, medicaments and biological substances; Z88.5 Allergy status to narcotic agent; Z79.82 Long term (current) use of aspirin; Z79.899 Other long term (current) drug therapy; Z79.4 Long term (current) use of insulin; I10 Essential (primary) hypertension; E78.5 Hyperlipidemia, unspecified; K21.9 Gastro-esophageal reflux disease without esophagitis; E11.9 Type 2 diabetes mellitus without complications; M19.90 Unspecified osteoarthritis, unspecified site; F17.210 Nicotine dependence, cigarettes, uncomplicated
CPT/HCPCS: 71046; 80053; 83880; 84484; 85025; 93005; 93010; 96374; 99285-25; A9270; J2919